=== PATIENT | female | born 1950 | race Caucasian/White ===

== ENCOUNTER 2022-05-19 08:48 | Outpatient (CLI) | payer MEDICARE, BC, SELFPAY ==
[2022-05-19 11:34] LABS: Albumin* 3.1 g/dL (3.3-5.0); Chloride* 96 mmol/L (96-114); Potassium* 4.9 mmol/L (3.6-5.1); Sodium* 133 mmol/L (135-149)
[2022-05-19 11:36] LABS: Iron* 71 ug/dL (37-170)
[2022-05-19 11:37] LABS: Creatinine* 3.4 mg/dL (0.5-1.5); Estimated Glomerular Filt Rate 14 ml/min
[2022-05-19 11:38] LABS: Blood Urea Nitrogen* 53 mg/dL (7-30); Calcium* 8.3 mg/dL (8.4-10.6); Carbon Dioxide* 28 mmol/L (20-32); Glucose* 115 mg/dL (60-115); Phosphorus* 5.5 mg/dL (2.5-4.5); Uric Acid* 6.7 mg/dL (2.2-8.4)
[2022-05-19 11:40] LABS: C Reactive Protein* 2.7 mg/dL (0.5-1.0)
[2022-05-19 11:45] LABS: Percent Iron Saturation 31 % (20-50); Total Iron Binding Capacity 229 ug/dL (265-497)
== END 2022-05-19 08:49 | disposition home or self-care (01) ==
PROVIDERS: Visit Provider Internal Medicine Nephrology
DX: D64.9 Anemia, unspecified (principal); I77.6 Arteritis, unspecified; N18.32 Chronic kidney disease, stage 3b; N18.4 Chronic kidney disease, stage 4 (severe)
CPT/HCPCS: 80069; 82728; 83540; 83550; 84550; 86140

== ENCOUNTER 2022-08-10 10:16 | Outpatient (CLI) | payer MEDICARE, BC, SELFPAY ==
[2022-08-10 15:05] LABS: Chloride* 97 mmol/L (96-114); Sodium* 131 mmol/L (135-149)
[2022-08-10 15:06] LABS: Iron* 35 ug/dL (37-170); Potassium* 3.8 mmol/L (3.6-5.1)
[2022-08-10 15:08] LABS: Carbon Dioxide* 25 mmol/L (20-32); Estimated Glomerular Filt Rate 16 ml/min
[2022-08-10 15:09] LABS: Blood Urea Nitrogen* 35 mg/dL (7-30); Calcium* 6.5 mg/dL (8.4-10.6); Glucose* 120 mg/dL (60-115); Phosphorus* 2.7 mg/dL (2.5-4.5)
[2022-08-10 15:15] LABS: Percent Iron Saturation 16 % (20-50); Total Iron Binding Capacity 214 ug/dL (265-497)
== END 2022-08-10 10:17 | disposition home or self-care (01) ==
PROVIDERS: Visit Provider Internal Medicine Nephrology
DX: N18.4 Chronic kidney disease, stage 4 (severe) (principal); D64.9 Anemia, unspecified; I10 Essential (primary) hypertension; R10.9 Unspecified abdominal pain; G89.4 Chronic pain syndrome; E03.9 Hypothyroidism, unspecified
CPT/HCPCS: 80069; 82310; 82728; 83540; 83550; 83970

== ENCOUNTER 2022-12-08 15:01 | Outpatient (CLI) | payer MEDICARE, BC, SELFPAY | END 2022-12-08 15:02 | disposition home or self-care (01) | LOC: AMB 12-10 12:19 | PROVIDERS: Visit Provider Emergency Medicine | DX: U07.1 COVID-19 (principal); R50.9 Fever, unspecified; R53.1 Weakness | CPT/HCPCS: A0425; A0429 ==

== ENCOUNTER 2022-12-08 15:29 | Inpatient (IN) | payer MEDICARE, BC, SELFPAY ==
[2022-12-08] VITALS (23 sets, daily range): BP systolic 100–141; BP diastolic 61–88; PULSE 97–170; RESP 20–32; TEMP 36.5–38.2; O2SAT 88–98; BMI 21.9
--- NOTE | 2022-12-08 16:11 | ED_ITS ---
HPI - General Adult General Chief complaint: Shortness of Breath/Dyspnea Stated complaint: Flu Symptoms Time Seen by Provider: 12/08/22 15:54 History of Present Illness HPI narrative: This 72-year-old female comes in with vague complaints but arrives with a heart rate at around 170 beats per minute. She states that she does not have any chest pain, shortness of breath, lightheadedness, or diaphoresis. She does state that she has had symptoms like this more than once in the past. I asked her what symptoms she was feeling today that made her want to come in and she did not give a clear answer. Her [id number] who cares for her arrives later and states that she found her to be less responsive with decreased oxygen and increased heart rate. Related Data Previous Rx's Medication Instructions Recorded levothyroxine 75 mcg tablet 75 mcg PO QDAY #90 tabs 08/10/22 (Levo-T) mirtazapine 15 mg tablet 15 mg PO QDAY #90 tabs 08/10/22 omeprazole magnesium 20 mg 20 mg PO QDAY #90 tabs 08/10/22 tablet,delayed release (Prilosec OTC) sodium bicarbonate 650 mg tablet 1,300 mg PO BID #360 tabs 08/10/22 iron,carbonyl 65 mg-vitamin C 125 1 tab PO QDAY #90 tabs 08/12/22 mg tablet,delayed release (Vitron-C) prednisone 5 mg tablet 5 mg PO QDAY #90 tabs 08/14/22 metoprolol tartrate 25 mg tablet See Rx Instructions .Route 11/10/22 .COMPLEX #180 tabs oxycodone 20 mg tablet 20 mg PO Q4H PRN pain #120 tabs 11/16/22 morphine 15 mg tablet,extended 15 mg PO Q12H #60 tabs 11/30/22 release Allergies Allergy/AdvReac Type Severity Reaction Status Date / Time varenicline Allergy Verified 08/10/22 10:26 Review of Systems Status of ROS: Reports: 10 or more systems reviewed and unremarkable except as noted in History and below Narrative: Constitutional: No fevers, no weight gain or loss. Eyes: No discharge. No vision changes. HENT: No congestion, no sore throat, no ear pain. Cardiovascular: No chest pain, no palpitations. Respiratory: No shortness of breath, no wheezes, no cough. Gastrointestinal: No abdominal pain, no vomiting, no diarrhea. Genitourinary: No dysuria, no hematuria. Musculoskeletal: Normal range of motion. Skin: No rashes, no pruritis. The patient's [id number] reports a chronic sacral ulcer. Neurological: No dizziness, weakness, sensory change, speech change. Endo/Heme/Allergies: No bruising or bleeding. No polydipsia. Pysch: no suicidality, no anxiety, no insomnia. All other systems reviewed and are negative. [facility] Medical History (Updated 12/08/22 @ 18:14 by Osiel Whelan MD) CKD (chronic kidney disease) stage 4, GFR 15-29 ml/min History of malignant melanoma (08/20/11) Major depression Tibia/fibula fracture Social History (Updated 05/07/22 @ 13:28 by Pepper Torres) Narrative: Durable power of commercial litigation attorney in chart- statutory short form power of commercial litigation attorney completed on 03/06/2021, reviewed and sent for scanning on 03/14/2021 Smoking Status: Never smoker Do you use any of these nicotine containing products: None Second hand tobacco smoke exposure: No How often do you have a drink containing alcohol: never How often do you have six or more drinks on one occasion: Never AUDIT-C Alcohol total score: 0 Non-prescribed substance use: denies use service: No Exam Narrative: Exam Narrative: Constitutional: Well-developed, well-nourished, no acute distress. HEENT: Normocephalic, atraumatic. Neck: Normal range of motion. Nontender. Supple. Heart: Regular. No murmurs. Tachycardia, rate around 170 beats per minute. Intact distal pulses. Lungs: Clear to auscultation. No chest discomfort. No wheezes, rhonchi, or rales. Abdomen: Normal bowel sounds. Nontender. No rebound tenderness. Genitalia: Deferred. Back: No midline tenderness. Normal range of motion. Extremities: Normal range of motion. No injury. Skin: Intact. No rash. Warm. No erythema or pallor. Neurologic: No altered sensation. No weakness. Alert and oriented. Psychiatric: No suicidality. No anxiety or depression. No insomnia. Nursing notes and vitals signs are reviewed. Const: Vital Signs, click to edit/add: Vital Signs - 24 hr 12/08/22 15:40 12/08/22 16:23 12/08/22 16:23 Temperature 98.6 F Pulse Rate Pulse Rate [Right Pulse Oximeter] 170 H Respiratory Rate 32 H Blood Pressure Blood Pressure [Ri ght Upper Arm] 105/70 Pulse Oximetry 88 93 93 Oxygen Delivery Me thod Nasal Cannula OxyM ask OxyMask Oxygen Flow Rate 6 12/08/22 16:48 12/08/22 15:51 12/08/22 16:00 Temperature 100.7 F H Pulse Rate 169 H 168 H Pulse Rate [Right Pulse Oximeter] Respiratory Rate Blood Pressure Blood Pressure [Ri ght Upper Arm] Pulse Oximetry 92 Oxygen Delivery Me thod Oxygen Flow Rate 12/08/22 16:07 12/08/22 16:15 12/08/22 16:21 Temperature Pulse Rate 166 H 164 H 170 H Pulse Rate [Right Pulse Oximeter] Respiratory Rate Blood Pressure 102/79 109/86 Blood Pressure [Ri ght Upper Arm] Pulse Oximetry 93 93 92 Oxygen Delivery Me thod Oxygen Flow Rate 12/08/22 16:30 12/08/22 16:41 12/08/22 16:44 Temperature Pulse Rate 165 H 165 H 168 H Pulse Rate [Right Pulse Oximeter] Respiratory Rate Blood Pressure 108/67 100/71 Blood Pressure [Ri ght Upper Arm] Pulse Oximetry 93 93 92 Oxygen Delivery Me thod Oxygen Flow Rate 12/08/22 16:45 12/08/22 16:46 12/08/22 17:00 Temperature Pulse Rate 136 H 125 H 113 H Pulse Rate [Right Pulse Oximeter] Respiratory Rate Blood Pressure 103/72 Blood Pressure [Ri ght Upper Arm] Pulse Oximetry 94 92 98 Oxygen Delivery Me thod Oxygen Flow Rate 12/08/22 17:02 12/08/22 17:03 12/08/22 17:15 Temperature Pulse Rate 117 H 115 H 115 H Pulse Rate [Right Pulse Oximeter] Respiratory Rate Blood Pressure 134/73 Blood Pressure [Ri ght Upper Arm] Pulse Oximetry 96 97 95 Oxygen Delivery Me thod Oxygen Flow Rate 12/08/22 17:21 12/08/22 17:30 12/08/22 17:42 Temperature Pulse Rate 119 H 120 H 110 H Pulse Rate [Right Pulse Oximeter] Respiratory Rate Blood Pressure 140/88 H 141/83 H Blood Pressure [Ri ght Upper Arm] Pulse Oximetry 94 95 96 Oxygen Delivery Me thod Oxygen Flow Rate 12/08/22 17:45 Temperature Pulse Rate 108 H Pulse Rate [Right Pulse Oximeter] Respiratory Rate Blood Pressure Blood Pressure [Ri ght Upper Arm] Pulse Oximetry 97 Oxygen Delivery Me thod Oxygen Flow Rate Course Vital Signs Vital signs: Initial Vital Signs Temperature 98.6 F 12/08/22 15:40 Temperature Source Temporal Artery Scan 12/08/22 15:40 Pulse Rate 170 H 12/08/22 15:40 Respiratory Rate 32 H 12/08/22 15:40 Blood Pressure 105/70 12/08/22 15:40 Blood Pressure Mean 81 12/08/22 15:40 Blood Pressure Position Sitting 12/08/22 15:40 Pulse Oximetry 88 12/08/22 15:40 Oxygen Delivery Method OxyMask 12/08/22 15:40 Vital Signs Temperature 98.6 F 12/08/22 15:40 Pulse Rate 170 H 12/08/22 15:40 Respiratory Rate 32 H 12/08/22 15:40 Blood Pressure 105/70 12/08/22 15:40 Pulse Oximetry 88 12/08/22 15:40 Oxygen Delivery Method OxyMask 12/08/22 15:40 Temperature 100.7 F H 12/08/22 16:48 Pulse Rate 108 H 12/08/22 17:45 Respiratory Rate 32 H 12/08/22 15:40 Blood Pressure 141/83 H 12/08/22 17:42 Pulse Oximetry 97 12/08/22 17:45 Oxygen Delivery Method 12/08/22 16:23 Oxygen Flow Rate 6 12/08/22 16:23 Medical Decision Making MDM Narrative Medical decision making narrative: This patient arrives with supraventricular tachycardia. Her initial temperature was normal. She had increased respiratory rate at around 32 breaths per minute. An IV was established where she received 6 mg of Adenocard which converted her back to a sinus tachycardia with a rate around 120 beats per minute. A repeat temperature returns at 100.7? F. patient has a lactate level that returns at 2. 2. She received 1.5 L of normal saline. She does have renal insufficiency with a creatinine around 3. Her white blood cell count returns elevated at around 28,000. Testing for COVID returns positive. Chest x-ray shows pneumonia in the right lower lobe. SIRS Criteria for sepsis involve any two of the following criteria: Temperature >38 or <36C; heart rate > 90 bpm; Respiratory rate >20 breaths/minute or partial pressure of CO2 < 32 mmHg. Based on this this patient does Meet criteria for sepsis workup and treatment. This patient presents with symptoms suspicious for sepsis. Appropriate labs are ordered which may include CBC, BMP, lactate, and blood cultures. The initial lactate returns at 2.2. One thousand five hundred mL of IV fluids were ordered at a rate of 500 mL/hr. The patient received approximately 20 milliliters/kilogram fluids because of a concern for heart/renal failure. Appropriate antibiotic (Zosyn) was administered after blood cultures drawn. A repeat lactate is pending at the time of admission. I relayed these findings to the hospitalist personal service representative, Dr. Rivera, who will arrange for her admission. Lab Data Labs: Lab Results 12/08/22 12/08/22 12/08/22 Range/Units 15:40 16:09 16:09 WBC 28.53 H* (4.50-11.00) K/uL RBC 3.31 L (4.00-5.20) m/uL Hgb 9.9 L (12.0-16.0) gm/dL Hct 29.7 L (33.0-51.0) % MCV 90 (80-100) fL MCH 30 (26-34) pg MCHC 33 (32-36) gm/dL RDW Coeff of Mona 14.1 (11.5-15.5) % Plt Count 310 (140-440) K/uL Neut % (Auto) 89.7 H (42.0-72.0) % Lymph % (Auto) 1.1 L (20-44) % Edgar % (Auto) 7.1 (0.0-11.0) % Eos % (Auto) 0.0 (0.0-7.0) % Baso % (Auto) 0.2 (0.0-3.0) % Neut # (Auto) 25.60 H (1.7-7.0) K/uL Lymph # (Auto) 0.30 L (0.90-2.90) K/uL Edgar # (Auto) 2.00 H (0.00-0.90) K/UL Eos # (Auto) 0.00 (0.00-0.50) K/uL Baso # (Auto) 0.10 (0.00-0.30) K/uL Diff Slide Review Acceptable Review (Acceptable) Sodium 132 L (135-149) mmol/L Potassium 4.6 (3.6-5.1) mmol/L Chloride 97 (96-114) mmol/L Carbon Dioxide 28 (20-32) mmol/L BUN 42 H (7-30) mg/dL Creatinine 3.7 H (0.5-1.5) mg/dL Estimated GFR 12 ml/min Glucose 122 H (60-115) mg/dL Lactate (0.5-1.9) mmol/L Calcium 8.4 (8.4-10.6) mg/dL Magnesium 2.3 (1.5-2.6) mg/dL SARS-CoV-2 (PCR) POSITIVE SARS-CoV-2 A (Negative) Influenza Type A (PCR) Negative PCR FLU A (Negative) Influenza Type B (PCR) Negative PCR FLU B (Negative) RSV (PCR) Negative PCR RSV (Negative) POC Troponin I (0.01-0.04) ng/ml 12/08/22 12/08/22 12/08/22 Range/Units 16:09 16:16 16:36 WBC (4.50-11.00) K/uL RBC (4.00-5.20) m/uL Hgb (12.0-16.0) gm/dL Hct (33.0-51.0) % MCV (80-100) fL MCH (26-34) pg MCHC (32-36) gm/dL RDW Coeff of Mona (11.5-15.5) % Plt Count (140-440) K/uL Neut % (Auto) (42.0-72.0) % Lymph % (Auto) (20-44) % Edgar % (Auto) (0.0-11.0) % Eos % (Auto) (0.0-7.0) % Baso % (Auto) (0.0-3.0) % Neut # (Auto) (1.7-7.0) K/uL Lymph # (Auto) (0.90-2.90) K/uL Edgar # (Auto) (0.00-0.90) K/UL Eos # (Auto) (0.00-0.50) K/uL Baso # (Auto) (0.00-0.30) K/uL Diff Slide Review (Acceptable) Sodium (135-149) mmol/L Potassium (3.6-5.1) mmol/L Chloride (96-114) mmol/L Carbon Dioxide (20-32) mmol/L BUN (7-30) mg/dL Creatinine (0.5-1.5) mg/dL Estimated GFR ml/min Glucose (60-115) mg/dL Lactate 2.2 H (0.5-1.9) mmol/L Calcium (8.4-10.6) mg/dL Magnesium Cancelled (1.5-2.6) mg/dL SARS-CoV-2 (PCR) (Negative) Influenza Type A (PCR) (Negative) Influenza Type B (PCR) (Negative) RSV (PCR) (Negative) POC Troponin I 0.03 (0.01-0.04) ng/ml Imaging Data Chest x-ray: Radiologist's impression: Right lower lobe airspace disease probably representing pneumonia. ECG Data Attestation: I personally reviewed and interpreted this ECG as follows: Interpretation: Supraventricular tachycardia, rate 168 beats per minute. There are no specific ST or T-wave abnormalities. Critical Care Time Critical Care Time Critical Care Time: Yes Attestation: The patient required my highest level preparedness to intervene emergently and I personally spent this critical care time directly and personally managing the patient. This critical care time included: Obtaining a history; Examining the patient; Pulse oximetry; Ordering and reviewing of studies; Arranging urgent treatment with development of a management plan; Evaluation of patients response to treatment; Frequent reassessment discussions with other providers. This critical care time was performed to assess and manage the high probability of imminent life-threatening deterioration that could result in multiorgan failure. It was exclusive of separate billable procedures and treating other patients and teaching time. Total Critical Care Time in Minutes: 45 Discharge Plan Discharge Clinical Impression: Pneumonia, CKD (chronic kidney disease) stage 4, GFR 15-29 ml/min, Sinus tachycardia, Chronic pain syndrome, COVID-19, Supraventricular tachycardia Patient Disposition: Admitted As Inpatient Condition: Improved Prescriptions: No Action omeprazole magnesium [Prilosec OTC] 20 mg tablet,delayed release (DR/EC) 20 mg PO QDAY Qty: 90 3RF levothyroxine [Levo-T] 75 mcg tablet 75 mcg PO QDAY Qty: 90 2RF mirtazapine 15 mg tablet 15 mg PO QDAY Qty: 90 1RF sodium bicarbonate 650 mg tablet 1,300 mg PO BID Qty: 360 1RF Vitron-C 65 mg iron- 125 mg tablet,delayed release (DR/EC) 1 tab PO QDAY Qty: 90 3RF prednisone 5 mg tablet 5 mg PO QDAY Qty: 90 3RF metoprolol tartrate 25 mg tablet See Rx Instructions .ROUTE .COMPLEX Qty: 180 0RF Dose Instruction: TAKE 1 TABLET BY MOUTH TWICE DAILY Rx Instructions: TAKE 1 TABLET BY MOUTH TWICE DAILY oxycodone 20 mg tablet 20 mg PO Q4H PRN (Reason: pain) Qty: 120 0RF morphine 15 mg tablet extended release 15 mg PO Q12H Qty: 60 0RF Follow Up/Referrals: Provider,Not a Local [Primary Care Provider] -
[2022-12-08 16:22] LABS: Basophils Percent Auto 0.2 % (0.0-3.0); Hematocrit 29.7 % (33.0-51.0); Hemoglobin* 9.9 gm/dL (12.0-16.0); Immature Granulocytes Pct Auto 1.9 %; Lymphocytes Percent Auto 1.1 % (20-44); Mean Corpuscular HGB Conc 33 gm/dL (32-36); Mean Corpuscular Hemoglobin 30 pg (26-34); Mean Corpuscular Volume 90 fL (80-100); Monocytes Percent Auto 7.1 % (0.0-11.0); Neutrophils Percent Auto 89.7 % (42.0-72.0); Platelet Count* 310 K/uL (140-440); RDW Coefficient of Variation % 14.1 % (11.5-15.5); Red Blood Count 3.31 m/uL (4.00-5.20)
[2022-12-08 16:25] LABS: Slide Review Reflex Yes; White Blood Count* 28.53 K/uL (4.50-11.00)
[2022-12-08 16:33] LABS: Troponin, Point-of-Care* 0.03 ng/ml (0.01-0.04)
--- NOTE | 2022-12-08 16:37 | CRLHL7_ITS ---
For Patients: As a result of the Century Cures Act, medical imaging exams and procedure reports are released immediately into your electronic medical record. You may view this report before your referring provider. If you have questions, please contact your health care provider. INDICATION: Leukocytosis COMPARISON: None TECHNIQUE: Single-view portable study FINDINGS: TUBES AND LINES: None. HEART AND MEDIASTINUM: The heart size is normal. The mediastinal contour appears normal for patient age. LUNGS AND PLEURAL SPACES: Right lower lobe airspace disease.The pleural spaces are unremarkable. OSSEOUS STRUCTURES: Age-appropriate appearance. No acute focal finding. IMPRESSION: Right lower lobe airspace disease probably representing pneumonia. Dictated by Shad Dela Cruz MD @ 12/08/2022 5:54:04 PM (Electronically Signed)
[2022-12-08 16:40] LABS: PCR FLU A Negative PCR FLU A (Negative); PCR FLU B Negative PCR FLU B (Negative); PCR RSV Negative PCR RSV (Negative)
[2022-12-08 16:41] LABS: SARS PCR* POSITIVE SARS-CoV-2 (Negative)
[2022-12-08 16:46] LABS: Lactate* 2.2 mmol/L (0.5-1.9)
[2022-12-08] MEDS: 0.9 % SODIUM CHLORIDE 500 ML 500 ML IV (16:46)
[2022-12-08] MEDS: ADENOSINE 6 MG/2ML INJ IVP (16:46)
[2022-12-08 17:02] LABS: Chloride* 97 mmol/L (96-114); Potassium* 4.6 mmol/L (3.6-5.1); Sodium* 132 mmol/L (135-149)
[2022-12-08 17:05] LABS: Blood Urea Nitrogen* 42 mg/dL (7-30); Carbon Dioxide* 28 mmol/L (20-32); Creatinine* 3.7 mg/dL (0.5-1.5); Estimated Glomerular Filt Rate 12 ml/min
[2022-12-08 17:06] LABS: Calcium* 8.4 mg/dL (8.4-10.6); Glucose* 122 mg/dL (60-115); Magnesium* 2.3 mg/dL (1.5-2.6)
[2022-12-08 17:07] LABS: Slide Review Acceptable Review (Acceptable)
[2022-12-08] MEDS: ONDANSETRON 2 MG/ML inj 4 MG IVP (17:25)
[2022-12-08] MEDS: OXYCODONE 5 MG TABLET 10 MG PO (17:49)
[2022-12-08] MEDS: 0.9 % SODIUM CHLORIDE 1000 ml 1,000 ML IV (17:49)
[2022-12-08] MEDS: PIPERACILLIN/TAZOBACTAM 3.375 GM in 0.9 % SODIUM CHLORIDE Mini-bag 100 ML IVPB (18:23)
[2022-12-08 18:36] LABS: Appearance Urine Clear (Clear); Bilirubin Urine Negative (Negative); Blood Urine 2+ (Negative); Color Urine Yellow (Yellow); Glucose Urine Negative (Negative); Ketones Urine Negative (Negative); Leukocyte Esterase Urine 1+ (Negative); Nitrite Urine Positive (Negative); Protein Urine 3+ (Negative); Specific Gravity Urine 1.015 (1.000-1.030); Urobilinogen Urine 0.2 (0.2-1.0); pH Urine 8.5 (5.0-8.5)
[2022-12-08 18:44] LABS: Bacteria Urine Few; Squamous Epithelial Cell Urine Few (None-Few)
--- NOTE | 2022-12-08 19:52 | PM.IMHP1 ---
Hospitalist- H&P: HPI History of Present Illness Time Seen by Provider: 18:30 Date Seen: 12/08/22 Chief complaint: Confusion, tachycardia, hypoxia Narrative: Alejandra Ashford is a 72 year old woman presents to the emergency department for assessment at the behest of her xepitzcf-ro-riw, Nati Keenan. Patient is not clear why she is here. Her nilmnykv-lq-teu indicates that she has been watching her zdkmhx-ih-gss closely since her kcgdcu-xo-wog's was diagnosed with COVID-19. This morning the patient was more weak. Patient was unable to get out of bed. Patient was tired and sleepy. Evtvlgbb-bi-lpd was concerned about this but kept an eye on her throughout the day. When she visited her later in the morning it was apparent that she was confused, had a rapid heart rate, and on her oximeter her oxygen saturations were low in the 80s. Ilvdqnvy-qo-sui finally convinced her yvntmy-py-icv to come in for assessment. Historically the patient is known to have chronic kidney disease stage 5 due to an underlying vasculitis not otherwise specified. She has had a major workup at the [facility], [facility], department of Nephrology. She is followed by Dr. Younger, sheet manager, [facility]. Patient has opted for comfort cares only. She has declined dialysis as well as kidney transplant. Family is trying to honor the patient's requests. Review of Systems Status of ROS: Reports: 10 or more systems reviewed and unremarkable except as noted in History and below Narrative: Over the past 1-2 days the patient has become increasingly weak, intermittently confused. More forgetful. Has had increasing lassitude. Her weakness progressed to the point where she was unable to get out of bed today. She has had decreased oral intake. She has had low-grade fevers with temperatures up to 100? F at home. Heart rate typically runs 100-120 when she is at rest. Today her heart rates were running higher between 140 and 150 that kemunbev-ui-pib could count. Normally her room air oxygen saturations are in the 90s. Today saturations were in the low 80s. As I evaluate the patient at this time, she is not sure why she is here. Denies any unusual or different pain at this time. Does have chronic pain. Does take opioids on a chronic basis at home. Over the past 4 months she has been treated 3 times for recurrent C diff colitis. She last completed a 2 week course of oral vancomycin for this 2 weeks ago. Does not have diarrhea at this time. Takes daily prednisone 5 mg daily. As the patient has become increasingly ill she has not taken stress doses of prednisone. Lives with her in a duplex. Their home is immediately adjacent to the home of their son and pfzinmzp-qd-yim. Her uurztqph-ms-won is her primary caregiver. Her thlmmldl-wg-pzc often makes her meals daily for her. Family is very supportive the patient in her decision to keep comfortable. Patient indicates on eleazaritating Rivka that she has a DNR DNI resuscitation status. Patient does not wish to pursue any additional disease directed diagnostic or interventional efforts aside from modalities to help her remain comfortable. Does not want any heroic interventions undertaken. She designates her bojvpnlv-fn-atu, Nati Keenan, as her primary power of litigation attorney associate for health should that be required. Nati's cell phone number is [phone]. Ivan Keenan is her son, whom Nati is to. She also designates Ivan as a power of litigation attorney associate for health should that be required. Ivan cell phone number is [phone]. [facility] Medical History Anemia Anemia due to stage 3b chronic kidney disease Bacterial pneumonia (03/07/13) Chronic nausea Chronic pain syndrome Chronic venous insufficiency of lower extremity CKD (chronic kidney disease) stage 4, GFR 15-29 ml/min Clostridioides difficile infection Fracture of proximal end of left tibia and fibula Frailty syndrome in geriatric patient Gastroesophageal reflux disease Health care directive on file (03/06/21) History of malignant melanoma (08/20/11) HTN (hypertension) Hypokalemia Hypothyroidism Incontinence of feces Major depression Moderate protein-calorie malnutrition Peripheral arterial disease Physical deconditioning Pressure injury of both feet, stage 3 Pressure injury of coccygeal region, stage 4 Pressure injury of ischium, stage 4 Pressure injury of skin of left ischial area Psoriasis (07/15/09) 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) Sinus tachycardia Squamous cell carcinoma (07/12/09) Stage 3b chronic kidney disease Tibia/fibula fracture Tobacco dependence syndrome Vasculitis Venous stasis ulcer of right lower extremity Vitamin D deficiency (08/26/10) Social History Narrative: Durable power of litigation attorney associate in chart- statutory short form power of litigation attorney associate completed on 03/06/2021, reviewed and sent for scanning on 03/14/2021 Smoking Status: Never smoker Do you use any of these nicotine containing products: None Second hand tobacco smoke exposure: No How often do you have a drink containing alcohol: never How often do you have six or more drinks on one occasion: Never AUDIT-C Alcohol total score: 0 Non-prescribed substance use: denies use service: No Meds Home Medications and Allergies Home Medication Comments: Levothyroxine 75 mcg daily Mirtazapine 15 mg daily Omeprazole 20 mg daily Sodium bicarbonate 650 mg tabs, 2 tabs twice daily Iron 65 mg with vitamin-C 125 mg 1 tab daily Prednisone 5 mg daily Metoprolol tartrate 25 mg twice daily Oxycodone immediate release 20 mg tab 1 every 4 hours as needed for pain Morphine 15 mg extended release tab 15 mg every 12 hours Allergies Allergy/AdvReac Type Severity Reaction Status Date / Time varenicline Allergy Verified 08/10/22 10:26 Exam Narrative: Exam Narrative: By the time I see her she appears comfortable. On presentation she is afebrile at 98.6. Within about an hour her temperature was up to 100.7? F. She is no longer tachycardic with a heart rate of 170, rather her heart rate is around 100 beats per minute. Did receive a single dose of adenosine which helped a great deal. Seizure no longer tachypneic at 32, with current respiratory rate 24. Room air oxygen saturation at rest on 1st presentation was 88%. With non-rebreather mask on at 6 liters/minute she is saturating 94-96%. Blood pressure initially low with systolic of 105. After slowing her heart rate down and provided her with oxygen, her blood pressure improved to a systolic value of 140 mmHg. Still not able to articulate why she came here. Is able to articulate that she thinks she has been having some problems. Readily indicates that she trusts her brrsxmhk-iw-wcy who accompanies her here in the emergency department was I am seeing her. Oriented to self, place, in part to time and situation. Friendly, cooperative, articulate. Mood and affect are congruent. Hearing is preserved grossly bilaterally. Vision is preserved grossly bilaterally. Tacky, dry buccal mucosa. Nasal-oropharynx otherwise unremarkable. Has cushinoid and appearance. Lungs remarkable for the fact that she has rales in the right base otherwise clear. No CVA tenderness. Tachycardic with regular heart rate and rhythm. Abdomen with active bowel sounds, soft, nontender. Has pitting edema bilateral pretibial area. Has compression stockings on. No focal motor neurologic deficits. Does have generalized weakness. Does have the confusion. Const: Vital Signs, click to edit/add: Vital Signs - 24 hr 12/08/22 15:40 12/08/22 16:23 12/08/22 16:23 Temperature 98.6 F Pulse Rate Pulse Rate [Right Pulse Oximeter] 170 H Respiratory Rate 32 H Blood Pressure Blood Pressure [Ri ght Upper Arm] 105/70 Pulse Oximetry 88 93 93 Oxygen Delivery Me thod Nasal Cannula OxyM ask OxyMask Oxygen Flow Rate 6 12/08/22 16:48 12/08/22 15:51 12/08/22 16:00 Temperature 100.7 F H Pulse Rate 169 H 168 H Pulse Rate [Right Pulse Oximeter] Respiratory Rate Blood Pressure Blood Pressure [Ri ght Upper Arm] Pulse Oximetry 92 Oxygen Delivery Me thod Oxygen Flow Rate 12/08/22 16:07 12/08/22 16:15 12/08/22 16:21 Temperature Pulse Rate 166 H 164 H 170 H Pulse Rate [Right Pulse Oximeter] Respiratory Rate Blood Pressure 102/79 109/86 Blood Pressure [Ri ght Upper Arm] Pulse Oximetry 93 93 92 Oxygen Delivery Me thod Oxygen Flow Rate 12/08/22 16:30 12/08/22 16:41 12/08/22 16:44 Temperature Pulse Rate 165 H 165 H 168 H Pulse Rate [Right Pulse Oximeter] Respiratory Rate Blood Pressure 108/67 100/71 Blood Pressure [Ri ght Upper Arm] Pulse Oximetry 93 93 92 Oxygen Delivery Me thod Oxygen Flow Rate 12/08/22 16:45 12/08/22 16:46 12/08/22 17:00 Temperature Pulse Rate 136 H 125 H 113 H Pulse Rate [Right Pulse Oximeter] Respiratory Rate Blood Pressure 103/72 Blood Pressure [Ri ght Upper Arm] Pulse Oximetry 94 92 98 Oxygen Delivery Me thod Oxygen Flow Rate 12/08/22 17:02 12/08/22 17:03 12/08/22 17:15 Temperature Pulse Rate 117 H 115 H 115 H Pulse Rate [Right Pulse Oximeter] Respiratory Rate Blood Pressure 134/73 Blood Pressure [Ri ght Upper Arm] Pulse Oximetry 96 97 95 Oxygen Delivery Me thod Oxygen Flow Rate 12/08/22 17:21 12/08/22 17:30 12/08/22 17:42 Temperature Pulse Rate 119 H 120 H 110 H Pulse Rate [Right Pulse Oximeter] Respiratory Rate Blood Pressure 140/88 H 141/83 H Blood Pressure [Ri ght Upper Arm] Pulse Oximetry 94 95 96 Oxygen Delivery Me thod Oxygen Flow Rate 12/08/22 17:45 Temperature Pulse Rate 108 H Pulse Rate [Right Pulse Oximeter] Respiratory Rate Blood Pressure Blood Pressure [Ri ght Upper Arm] Pulse Oximetry 97 Oxygen Delivery Me thod Oxygen Flow Rate Hospitalist - H&P: Result Labs Labs: Short CBC 12/08/22 Range/Units 16:09 WBC 28.53 H* (4.50-11.00) K/uL Hgb 9.9 L (12.0-16.0) gm/dL Hct 29.7 L (33.0-51.0) % Plt Count 310 (140-440) K/uL BMP 12/08/22 16:09 Sodium 132 L Potassium 4.6 Chloride 97 Carbon Dioxide 28 BUN 42 H Creatinine 3.7 H Glucose 122 H Calcium 8.4 Urine 12/08/22 Range/Units 18:28 Urine Color Yellow (Yellow) Urine Appearance Clear (Clear) Urine pH 8.5 (5.0-8.5) Ur Specific [place] 1.015 (1.000-1.030) Urine Protein 3+ A (Negative) Urine Glucose (UA) Negative (Negative) Assessment and Plan Assessment and plan (1) Community acquired pneumonia: Status: Acute (2) COVID-19: Status: Acute (3) Encephalopathy acute: Problem comment: Multifactorial including from COVID-19, pneumonia and fever, adrenal insufficiency, acute kidney injury with chronic kidney disease stage 5 Status: Acute (4) Supraventricular tachycardia: Status: Acute (5) Sinus tachycardia: Status: Acute (6) Clostridioides difficile infection: Problem comment: Treated with oral vancomycin 3 x since July 2022, last completed a 2-week course 11/24/2022. Status: Acute (7) Acute hypoxemic respiratory failure: Status: Acute Plan 1. Reviewed with patient and her efcmkdzo-ae-toi. Answered their questions. 2. Admit to the hospital, which they are agreeable to. 3. Treat for bacterial pneumonia with piperacillin and tazobactam, adjusted for chronic kidney disease and acute kidney injury. 4. Initiate a 3 day course of remdesivir. 5. With the recurrent clostridioides difficile infection, will need to preemptively initiate vancomycin 125 mg q.i.d. for a minimum of 10 days while on antibiotic therapy for the pneumonia. Additionally will initiate oral probiotics for indefinite period of time hereafter. 6. Stress dosing of steroids for at least today before resumption of usual doses. 7. Monitor patient on telemetry while in hospital receiving remdesivir. 8. Under patient's request for DNR DNI and focus on her being comfortable. 9. Continue with other supportive efforts.
[2022-12-08] MEDS: HYDROCORTISONE SOD SUCCINATE 50 MG/ML inj 100 MG IVP (21:32)
[2022-12-08] MEDS: VANCOMYCIN 125 MG CAPSULE PO (21:32)
[2022-12-08] MEDS: MIRTAZAPINE 15 MG TABLET PO (21:33)
[2022-12-08] MEDS: METOPROLOL TARTRATE 25 MG TABLET PO (21:33)
[2022-12-08] MEDS: SODIUM BICARBONATE 650 MG TABLET 1300 MG PO (21:33)
[2022-12-08] MEDS: SODIUM CHLORIDE 0.9 % (FLUSH) 10 ML SYRINGE 5 ML IVF (21:34)
[2022-12-08] MEDS: OXYCODONE 5 MG TABLET 20 MG PO (21:34)
[2022-12-09] VITALS (7 sets, daily range): BP systolic 136–162; BP diastolic 56–83; PULSE 60–108; RESP 18–22; TEMP 35.9–36.6; O2SAT 92–95; BMI 21.8
--- NOTE | 2022-12-09 00:58 | PC.NURSE ---
Wound dressing change: Pt arrived with sacral wound and dressing that was soaked through. Simple wet to dry dressing was performed, sterile gauze with saline irrigant solution used for packing, with 2X2 gauze on top and covered with Mepilex. Pt tolerated procedure well, her divfesfp-kg-ffj Nati, assisted in the room, she is the primary caregiver and does dressing changes for the pt at home.
[2022-12-09] MEDS: PIPERACILLIN/TAZOBACTAM 2.25 GM in 0.9 % SODIUM CHLORIDE Mini-bag 100 ML IVPB ×3 (01:55→17:57)
[2022-12-09] MEDS: HYDROCORTISONE SOD SUCCINATE 50 MG/ML inj 100 MG IVP ×2 (05:57→13:57)
[2022-12-09] MEDS: SODIUM CHLORIDE 0.9 % (FLUSH) 10 ML SYRINGE 5 ML IVF ×2 (05:57→20:30)
--- NOTE | 2022-12-09 06:11 | PC.NURSE ---
Shift note: Pt is afebrile overnight, she is on room air, O2 sats 92-94% with rest. Gill cath is intact and draining. Extremely fragile skin, flakes and scaling shedding continuously. The entire bottom is heidi, with major sacral wound and two healed lateral wounds on each side of buttock. Chronic pain treated per eMAR with relief, pt was able to rest overnight. Alert and oriented, pleasant and cooperative.
[2022-12-09 09:21] LABS: Basophils Percent Auto 0.2 % (0.0-3.0); Eosinophils Percent Auto 0.1 % (0.0-7.0); Hemoglobin* 8.5 gm/dL (12.0-16.0); Immature Granulocytes Pct Auto 0.5 %; Lymphocytes Percent Auto 1.7 % (20-44); Mean Corpuscular HGB Conc 33 gm/dL (32-36); Mean Corpuscular Hemoglobin 30 pg (26-34); Mean Corpuscular Volume 91 fL (80-100); Monocytes Percent Auto 1.9 % (0.0-11.0); Neutrophils Percent Auto 95.6 % (42.0-72.0); Platelet Count* 208 K/uL (140-440); RDW Coefficient of Variation % 14.2 % (11.5-15.5); Red Blood Count 2.87 m/uL (4.00-5.20); White Blood Count* 12.54 K/uL (4.50-11.00)
[2022-12-09 09:28] LABS: Slide Review Reflex No
[2022-12-09 09:32] LABS: Chloride* 99 mmol/L (96-114)
[2022-12-09 09:33] LABS: Potassium* 4.7 mmol/L (3.6-5.1); Sodium* 130 mmol/L (135-149)
[2022-12-09 09:35] LABS: Carbon Dioxide* 24 mmol/L (20-32); Creatinine* 3.6 mg/dL (0.5-1.5); Est. Creatinine Clearance* 14.55; Estimated Glomerular Filt Rate 13 ml/min
[2022-12-09 09:36] LABS: Blood Urea Nitrogen* 40 mg/dL (7-30); Glucose* 83 mg/dL (60-115)
--- NOTE | 2022-12-09 09:51 | P.IMPN_ITS ---
Progress Note: A&P Assessment and plan (1) Community acquired pneumonia: Problem details: - RLL, noted on 12/08 CXR - Zosyn (12/08) Status: Acute (2) COVID-19: Problem details: - Remdesivir (12/08), not requiring supplemental oxygen as of hospital day #1 - weakness as primary symptom; therapies ordered Status: Acute (3) Clostridioides difficile infection: Problem details: - Recurrent; treated with oral vancomycin 3 x since July 2022, last completed a 2-week course 11/24/2022 - empirically initiated oral Vancomycin on 12/08 given CAP, significant leukocytosis on admission, antibiotic administration, risk factors Status: Acute (4) Encephalopathy acute: Problem details: - Multifactorial including from COVID-19, pneumonia and fever, adrenal insufficiency, KAMILA superimposed onto CKD - improving Status: Acute (5) Supraventricular tachycardia: Problem details: - noted in ED 12/08 (treated with Adenosine x1), resolved Status: Acute (6) CKD (chronic kidney disease) stage 4, GFR 15-29 ml/min: Status: Acute (7) Decubitus ulcer of coccygeal region: Problem details: - wound care referral placed Status: Acute (8) Chronic use of opiate drug for therapeutic purpose: Problem details: - chronic pain; continue home medications Status: Acute (9) Chronic steroid use: Problem details: - 5mg of daily Prednisone for h/o vasculitis, RA, psoriasis - continue Prednisone during stay; given stress dose IV hydrocortisone on admission Status: Acute Plan - per above - renally dosed Lovenox for ppx - qcwxjqud-cc-uft Nati updated at beside, questions answered Subjective Date Seen: 12/09/22 Interval history: Patient was able to wean off of supplemental oxygen overnight, tolerated medications and cares. She states she's feeling not good, no specific concerns for hospitalist team. No diarrhea at this time. Exam Narrative: Exam Narrative: GEN: Alert and oriented, appears ill but nontoxic HEENT: EOMIs bilaterally, no scleral icterus CV: RRR, No concerning murmurs, rubs, or gallops R: Bibasilar crackles, R>L, no wheezing Ext: Wearing Riley hose bilaterally Skin: Erythematous, flaking, fragile skin noted over buttocks with + skin breakdown. Larger coccyx wound covered during my exam Neuro: No focal deficits Psych: Appropriate Const: Vital Signs, click to edit/add: Vital Signs - 24 hr 12/08/22 15:40 12/08/22 16:23 12/08/22 16:23 Temperature 98.6 F Pulse Rate Pulse Rate [Pulse Oximeter] Pulse Rate [Right Pulse Oximeter] 170 H Respiratory Rate 32 H Blood Pressure Blood Pressure [Le ft Arm] Blood Pressure [Ri ght Upper Arm] 105/70 Pulse Oximetry 88 93 93 Oxygen Delivery Me thod Nasal Cannula OxyM ask OxyMask Oxygen Flow Rate 6 12/08/22 16:48 12/08/22 15:51 12/08/22 16:00 Temperature 100.7 F H Pulse Rate 169 H 168 H Pulse Rate [Pulse Oximeter] Pulse Rate [Right Pulse Oximeter] Respiratory Rate Blood Pressure Blood Pressure [Le ft Arm] Blood Pressure [Ri ght Upper Arm] Pulse Oximetry 92 Oxygen Delivery Me thod Oxygen Flow Rate 12/08/22 16:07 12/08/22 16:15 12/08/22 16:21 Temperature Pulse Rate 166 H 164 H 170 H Pulse Rate [Pulse Oximeter] Pulse Rate [Right Pulse Oximeter] Respiratory Rate Blood Pressure 102/79 109/86 Blood Pressure [Le ft Arm] Blood Pressure [Ri ght Upper Arm] Pulse Oximetry 93 93 92 Oxygen Delivery Me thod Oxygen Flow Rate 12/08/22 16:30 12/08/22 16:41 12/08/22 16:44 Temperature Pulse Rate 165 H 165 H 168 H Pulse Rate [Pulse Oximeter] Pulse Rate [Right Pulse Oximeter] Respiratory Rate Blood Pressure 108/67 100/71 Blood Pressure [Le ft Arm] Blood Pressure [Ri ght Upper Arm] Pulse Oximetry 93 93 92 Oxygen Delivery Me thod Oxygen Flow Rate 12/08/22 16:45 12/08/22 16:46 12/08/22 17:00 Temperature Pulse Rate 136 H 125 H 113 H Pulse Rate [Pulse Oximeter] Pulse Rate [Right Pulse Oximeter] Respiratory Rate Blood Pressure 103/72 Blood Pressure [Le ft Arm] Blood Pressure [Ri ght Upper Arm] Pulse Oximetry 94 92 98 Oxygen Delivery Me thod Oxygen Flow Rate 12/08/22 17:02 12/08/22 17:03 12/08/22 17:15 Temperature Pulse Rate 117 H 115 H 115 H Pulse Rate [Pulse Oximeter] Pulse Rate [Right Pulse Oximeter] Respiratory Rate Blood Pressure 134/73 Blood Pressure [Le ft Arm] Blood Pressure [Ri ght Upper Arm] Pulse Oximetry 96 97 95 Oxygen Delivery Me thod Oxygen Flow Rate 12/08/22 17:21 12/08/22 17:30 12/08/22 17:42 Temperature Pulse Rate 119 H 120 H 110 H Pulse Rate [Pulse Oximeter] Pulse Rate [Right Pulse Oximeter] Respiratory Rate Blood Pressure 140/88 H 141/83 H Blood Pressure [Le ft Arm] Blood Pressure [Ri ght Upper Arm] Pulse Oximetry 94 95 96 Oxygen Delivery Me thod Oxygen Flow Rate 12/08/22 17:45 12/08/22 19:26 12/08/22 19:26 Temperature 100.7 F H Pulse Rate 108 H Pulse Rate [Pulse Oximeter] 108 H Pulse Rate [Right Pulse Oximeter] Respiratory Rate 22 22 Blood Pressure Blood Pressure [Le ft Arm] 141/83 H Blood Pressure [Ri ght Upper Arm] Pulse Oximetry 97 97 96 Oxygen Delivery Me thod OxyMask OxyMask Oxygen Flow Rate 6 6 12/08/22 23:00 12/09/22 03:00 Temperature 97.7 F 98 F Pulse Rate Pulse Rate [Pulse Oximeter] 97 95 Pulse Rate [Right Pulse Oximeter] Respiratory Rate 20 18 Blood Pressure Blood Pressure [Le ft Arm] 140/61 H 138/60 Blood Pressure [Ri ght Upper Arm] Pulse Oximetry 94 95 Oxygen Delivery Me thod OxyMask Room Air OxyMask Oxygen Flow Rate 2 Labs Labs: Laboratory Results - last 24 hr 12/08/22 12/08/22 12/08/22 15:40 16:09 16:09 WBC 28.53 H* RBC 3.31 L Hgb 9.9 L Hct 29.7 L MCV 90 MCH 30 MCHC 33 RDW Coeff of Mona 14.1 Plt Count 310 Neut % (Auto) 89.7 H Lymph % (Auto) 1.1 L [place] % (Auto) 7.1 Eos % (Auto) 0.0 Baso % (Auto) 0.2 Neut # (Auto) 25.60 H Lymph # (Auto) 0.30 L [place] # (Auto) 2.00 H Eos # (Auto) 0.00 Baso # (Auto) 0.10 Diff Slide Review Acceptable Review Sodium 132 L Potassium 4.6 Chloride 97 Carbon Dioxide 28 BUN 42 H Creatinine 3.7 H Estimated Creat Clear Estimated GFR 12 Glucose 122 H Lactate Calcium 8.4 Magnesium 2.3 Urine Color Urine Appearance Urine pH Ur Specific [place] Urine Protein Urine Glucose (UA) Urine Ketones Urine Blood Urine Nitrite Urine Bilirubin Urine Urobilinogen Ur Leukocyte Esterase Urine RBC Urine WBC Ur Squamous Epith Cells Urine Bacteria SARS-CoV-2 (PCR) POSITIVE SARS-CoV-2 A Influenza Type A (PCR) Negative PCR FLU A Influenza Type B (PCR) Negative PCR FLU B RSV (PCR) Negative PCR RSV POC Troponin I 12/08/22 12/08/22 12/08/22 16:09 16:16 16:36 WBC RBC Hgb Hct MCV MCH MCHC RDW Coeff of Mnoa Plt Count Neut % (Auto) Lymph % (Auto) [place] % (Auto) Eos % (Auto) Baso % (Auto) Neut # (Auto) Lymph # (Auto) [place] # (Auto) Eos # (Auto) Baso # (Auto) Diff Slide Review Sodium Potassium Chloride Carbon Dioxide BUN Creatinine Estimated Creat Clear Estimated GFR Glucose Lactate 2.2 H Calcium Magnesium Cancelled Urine Color Urine Appearance Urine pH Ur Specific [place] Urine Protein Urine Glucose (UA) Urine Ketones Urine Blood Urine Nitrite Urine Bilirubin Urine Urobilinogen Ur Leukocyte Esterase Urine RBC Urine WBC Ur Squamous Epith Cells Urine Bacteria SARS-CoV-2 (PCR) Influenza Type A (PCR) Influenza Type B (PCR) RSV (PCR) POC Troponin I 0.03 12/08/22 12/09/22 12/09/22 18:28 09:15 09:15 WBC 12.54 H RBC 2.87 L Hgb 8.5 L Hct 26.0 L MCV 91 MCH 30 MCHC 33 RDW Coeff of Mona 14.2 Plt Count 208 Neut % (Auto) 95.6 H Lymph % (Auto) 1.7 L [place] % (Auto) 1.9 Eos % (Auto) 0.1 Baso % (Auto) 0.2 Neut # (Auto) 12.00 H Lymph # (Auto) 0.20 L [place] # (Auto) 0.20 Eos # (Auto) 0.00 Baso # (Auto) 0.00 Diff Slide Review Sodium 130 L Potassium 4.7 Chloride 99 Carbon Dioxide 24 BUN 40 H Creatinine 3.6 H Estimated Creat Clear 14.55 Estimated GFR 13 Glucose 83 Lactate Calcium 7.0 L Magnesium Urine Color Yellow Urine Appearance Clear Urine pH 8.5 Ur Specific [place] 1.015 Urine Protein 3+ A Urine Glucose (UA) Negative Urine Ketones Negative Urine Blood 2+ A Urine Nitrite Positive A Urine Bilirubin Negative Urine Urobilinogen 0.2 Ur Leukocyte Esterase 1+ A Urine RBC 5-10 A Urine WBC 2-5 Ur Squamous Epith Cells Few Urine Bacteria Few A SARS-CoV-2 (PCR) Influenza Type A (PCR) Influenza Type B (PCR) RSV (PCR) POC Troponin I
[2022-12-09] MEDS: OXYCODONE 5 MG TABLET 20 MG PO ×4 (10:18→23:34)
[2022-12-09] MEDS: METOPROLOL TARTRATE 25 MG TABLET PO ×2 (10:21→23:25)
[2022-12-09] MEDS: VANCOMYCIN 125 MG CAPSULE PO ×2 (10:22→23:26)
[2022-12-09] MEDS: LEVOTHYROXINE 75 MCG TABLET PO (10:22)
[2022-12-09] MEDS: ENOXAPARIN 30 MG/0.3ML INJ SUBCUT ×2 (10:27→10:29)
[2022-12-09] MEDS: SODIUM BICARBONATE 650 MG TABLET 1300 MG PO (10:28)
[2022-12-09] MEDS: ONDANSETRON ODT 4 MG TAB PO ×2 (11:40→17:57)
--- NOTE | 2022-12-09 14:14 | REH.PT ---
Pt refused PT eval d/t n/v. Will eval tomorrow.
--- NOTE | 2022-12-09 16:33 | REH.OT ---
OT: Order received, attempted x2, initial time vomiting late am, then declined OOB. Will reschedule to tomorrow.
[2022-12-09] MEDS: LACTOBACILLUS ACIDOPHILUS 1 TABLET 2 TAB PO (17:56)
--- NOTE | 2022-12-09 18:38 | PC.NURSE ---
Patient with weakness and nausea today. Patient declined therapy services today as she was not feeling well and nausea. Patient was given PRN zofran x2 on this shift. Patient daughter in law request patient have oxycodone every 4 hours for pain control. Patient with continent/incontinence of BM today and requested bedpan. Patient remains 1-2 assist with cares. patient skin remians very dry and flaky. Patient has extensive wound to sacral area that patient and daughter in law preferred not to be changed today. Patient legs has BLE wounds and were both changed by this nurse with wound wash, and nonstick pad and kerlix applied. Patient instructed to inform daughter in law to provide staff with wound care instructions in order for staff to follow up with proper wound care to insure proper healing for patient. Patient daughter in law requests that therapy works with patient but states that patient baseline at home was only that patient transferred from bed to her motorized wheelchair. Patient requires some assistance with feeding as she has arthritis and is unable to open her containers. Patient catheter remains in place and patent. Patient vitally stable.
[2022-12-09] MEDS: ONDANSETRON 2 MG/ML inj 4 MG IVP (20:31)
[2022-12-09] MEDS: 0.9 % SODIUM CHLORIDE 250 ml IV (20:48)
[2022-12-09] MEDS: PROCHLORPERAZINE 10 MG TABLET PO (22:35)
[2022-12-09] MEDS: MIRTAZAPINE 15 MG TABLET PO (23:26)
[2022-12-09] MEDS: FAMOTIDINE 20 MG TABLET PO (23:27)
[2022-12-10] VITALS (7 sets, daily range): BP systolic 129–159; BP diastolic 54–88; PULSE 64–77; RESP 12–20; TEMP 36.6–37.5; O2SAT 92–96
[2022-12-10] MEDS: LORazepam 2 MG/ML inj 0.5 MG IVP (00:13)
[2022-12-10] MEDS: PIPERACILLIN/TAZOBACTAM 2.25 GM in 0.9 % SODIUM CHLORIDE Mini-bag 100 ML IVPB ×3 (01:57→18:04)
--- NOTE | 2022-12-10 05:36 | PC.NURSE ---
: Beginning of shift pt's nausea wasn't relieved after zofran, thus prochlorperazine order received but after an hour no relief/not even tired, had 10cc emesis, thus md updated and ativan order obtained/given iv with relief as patient has been resting soundly since, rr 12-14 oximetry low 90% ra, abdomen active, had soft bm, no distention/pain. tolerating t&r, skin irritated/flaky/red refused lotion, coccyx mepilex intact, prior nurse wrapped pt's legs and pt didn't want me to remove them, cms appropriate, tele nsr.
[2022-12-10] MEDS: LEVOTHYROXINE 75 MCG TABLET PO (05:55)
[2022-12-10 07:28] LABS: Basophils Absolute Auto 0.02 K/uL (0.00-0.30); Basophils Percent Auto 0.2 % (0.0-3.0); Eosinophils Absolute Auto 0.02 K/uL (0.00-0.50); Eosinophils Percent Auto 0.2 % (0.0-7.0); Hematocrit 27.2 % (33.0-51.0); Hemoglobin* 8.9 gm/dL (12.0-16.0); Immature Granulocytes Abs Auto 0.05 K/uL (0.00-0.30); Immature Granulocytes Pct Auto 0.6 %; Lymphocytes Percent Auto 7.7 % (20-44); Mean Corpuscular HGB Conc 33 gm/dL (32-36); Mean Corpuscular Hemoglobin 30 pg (26-34); Mean Corpuscular Volume 91 fL (80-100); Monocytes Percent Auto 7.1 % (0.0-11.0); Neutrophils Percent Auto 84.2 % (42.0-72.0); Platelet Count* 220 K/uL (140-440); RDW Coefficient of Variation % 14.2 % (11.5-15.5); White Blood Count* 8.86 K/uL (4.50-11.00)
[2022-12-10 07:30] LABS: Lactate* 0.8 mmol/L (0.5-1.9); Slide Review Reflex No
[2022-12-10 07:54] LABS: Chloride* 101 mmol/L (96-114)
[2022-12-10 07:55] LABS: Potassium* 3.5 mmol/L (3.6-5.1); Sodium* 133 mmol/L (135-149)
[2022-12-10 07:57] LABS: Carbon Dioxide* 24 mmol/L (20-32); Creatinine* 3.4 mg/dL (0.5-1.5); Estimated Glomerular Filt Rate 14 ml/min
[2022-12-10 07:58] LABS: Blood Urea Nitrogen* 40 mg/dL (7-30); Calcium* 7.1 mg/dL (8.4-10.6); Glucose* 82 mg/dL (60-115)
[2022-12-10] MEDS: LACTOBACILLUS ACIDOPHILUS 1 TABLET 2 TAB PO ×3 (08:06→17:49)
[2022-12-10] MEDS: ACETAMINOPHEN 325 MG TABLET 650 MG PO (09:04)
[2022-12-10] MEDS: FAMOTIDINE 20 MG TABLET PO ×2 (09:06→20:07)
[2022-12-10] MEDS: SODIUM BICARBONATE 650 MG TABLET 1300 MG PO ×2 (09:06→20:07)
[2022-12-10] MEDS: METOPROLOL TARTRATE 25 MG TABLET PO ×2 (09:06→20:07)
[2022-12-10] MEDS: predniSONE 5 MG TABLET PO (09:06)
[2022-12-10] MEDS: VANCOMYCIN 125 MG CAPSULE PO ×4 (09:07→20:07)
[2022-12-10] MEDS: ENOXAPARIN 30 MG/0.3ML INJ SUBCUT (09:07)
[2022-12-10] MEDS: OXYCODONE 5 MG TABLET 20 MG PO ×3 (09:19→17:04)
--- NOTE | 2022-12-10 09:28 | PM.IMPN1 ---
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; treated with oral vancomycin 3 x since July 2022, last completed a 2-week course 11/24/2022 - empirically initiated oral Vancomycin on 12/08 given CAP, significant leukocytosis on admission, antibiotic administration, risk factors - currently not having diarrhea Status: Acute (4) Encephalopathy acute: Problem details: - noted on admission: Multifactorial including from COVID-19, pneumonia and fever, adrenal insufficiency, KAMILA superimposed onto CKD - improving Status: Acute (5) Supraventricular tachycardia: Problem details: - noted in ED 12/08 (treated with Adenosine x1), resolved - HR now on the lower side (currently 60s, HR at home typically 90-100, per Nati); likely iatrogenic from remdesivir. Regular rhythm, asymptomatic, follow - TTE ordered Status: Acute (6) CKD (chronic kidney disease) stage 4, GFR 15-29 ml/min: Problem details: - with associated normocytic anemia, baseline Status: Acute (7) Decubitus ulcer of coccygeal region: Problem details: - wound care Status: Acute (8) Chronic use of opiate drug for therapeutic purpose: Problem details: - chronic pain; continue home medications Status: Acute (9) Chronic steroid use: Problem details: - 5mg of daily Prednisone for h/o vasculitis, RA, psoriasis - continue Prednisone during stay; treated with stress dose IV hydrocortisone on admission Status: Acute (10) Hypocalcemia: Problem details: - replace and follow Status: Acute Plan - per above - Lovenox for ppx - [id number] Nati updated at bedside, questions answered Subjective Date Seen: 12/10/22 Interval history: No acute events overnight. Remains stable on room air. Still feels poorly, no other concerns for hospitalist team. Exam Narrative: Exam Narrative: GEN: Alert, laying comfortably in bed HEENT: EOMIs bilaterally, no scleral icterus CV: RRR (rate in the 60s during my exam), No concerning murmurs, rubs, or gallops R: Fine crackles bilateral bases, no wheezing Skin: No concerning skin lesions or rashes on exposed skin (sacrum not formally examined today) Neuro: No focal deficits Psych: Appropriate Const: Vital Signs, click to edit/add: Vital Signs - 24 hr 12/09/22 11:00 12/09/22 15:00 12/09/22 15:00 Temperature 97.9 F 97.9 F Pulse Rate [Pulse Oximeter] 79 79 80 Respiratory Rate 22 22 22 Blood Pressure [Le ft Arm] 162/68 H 162/79 H Blood Pressure [Ri ght Arm] Pulse Oximetry 95 95 Oxygen Delivery Me thod Room Air Room Air Oxygen Flow Rate 2 12/09/22 20:51 12/09/22 21:00 12/09/22 23:27 Temperature 98 F 97.7 F Pulse Rate [Pulse Oximeter] 60 67 Respiratory Rate 18 18 18 Blood Pressure [Le ft Arm] 143/83 H 158/69 H Blood Pressure [Ri ght Arm] Pulse Oximetry 95 95 Oxygen Delivery Me thod Room Air Room Air Oxygen Flow Rate 12/10/22 03:00 12/10/22 07:00 Temperature 97.9 F 98.3 F Pulse Rate [Pulse Oximeter] 64 64 Respiratory Rate 18 12 Blood Pressure [Le ft Arm] 129/54 L Blood Pressure [Ri ght Arm] 148/59 H Pulse Oximetry 92 93 Oxygen Delivery Me thod Room Air Room Air Oxygen Flow Rate Labs Labs: Laboratory Results - last 24 hr 12/09/22 12/09/22 12/10/22 09:15 09:15 07:16 WBC 12.54 H 8.86 RBC 2.87 L 3.00 L Hgb 8.5 L 8.9 L Hct 26.0 L 27.2 L MCV 91 91 MCH 30 30 MCHC 33 33 RDW Coeff of Mona 14.2 14.2 Plt Count 208 220 Neut % (Auto) 95.6 H 84.2 H Lymph % (Auto) 1.7 L 7.7 L Dickens % (Auto) 1.9 7.1 Eos % (Auto) 0.1 0.2 Baso % (Auto) 0.2 0.2 Neut # (Auto) 12.00 H 7.50 H Lymph # (Auto) 0.20 L 0.70 L Dickens # (Auto) 0.20 0.60 Eos # (Auto) 0.00 0.02 Baso # (Auto) 0.00 0.02 Sodium 130 L Potassium 4.7 Chloride 99 Carbon Dioxide 24 BUN 40 H Creatinine 3.6 H Estimated Creat Clear 14.55 Estimated GFR 13 Glucose 83 Lactate Calcium 7.0 L 12/10/22 12/10/22 07:16 07:16 WBC RBC Hgb Hct MCV MCH MCHC RDW Coeff of Mona Plt Count Neut % (Auto) Lymph % (Auto) Dickens % (Auto) Eos % (Auto) Baso % (Auto) Neut # (Auto) Lymph # (Auto) Dickens # (Auto) Eos # (Auto) Baso # (Auto) Sodium 133 L Potassium 3.5 L Chloride 101 Carbon Dioxide 24 BUN 40 H Creatinine 3.4 H Estimated Creat Clear 15.40 Estimated GFR 14 Glucose 82 Lactate 0.8 Calcium 7.1 L
[2022-12-10] MEDS: SODIUM CHLORIDE 0.9 % (FLUSH) 10 ML SYRINGE 5 ML IVF ×2 (09:59→20:13)
[2022-12-10] MEDS: 0.9 % SODIUM CHLORIDE 250 ml IV (10:01)
--- NOTE | 2022-12-10 12:38 | PM.WSCN ---
Date of Consult Consult date: 12/10/22 Requesting Physician: Hospitalist Primary Care Provider: Not a Local Provider Consult Narrative Reason for consult: chronic pressure ulcer to coccyx Narrative: Alejandra Ashford is a 72 year old female known to this provider through the wound center. Patients wound is stable, in similar appearance to when I last saw her wound in 2021. Patient remains with limited mobility and utilizes airloss mattress. Patient is currently inpatient with covid-19 infection. Review of Systems Status of ROS: Reports: 6 or more systems reviewed and unremarkable except as noted in History and below [facility] Medical History (Updated 01/13/23 @ 21:56 by Rj Mackay MD) Steroid dependence ?F19.20 - Other psychoactive substance dependence, uncomplicated (ICD-10) Clostridioides difficile infection ?A49.8 - Other bacterial infections of unspecified site (ICD-10) HTN (hypertension) ?I10 - Essential (primary) hypertension (ICD-10) Major depression ?F32.9 - Major depressive disorder, single episode, unspecified (ICD-10) Vasculitis ?I77.6 - Arteritis, unspecified (ICD-10) Anemia ?D64.9 - Anemia, unspecified (ICD-10) Vitamin D deficiency (08/26/10) ?E55.9 - Vitamin D deficiency, unspecified (ICD-10) Venous stasis ulcer of right lower extremity ?I83.019 - Varicose veins of right lower extremity with ulcer of unspecified site (ICD-10) ?L97.919 - Non-pressure chronic ulcer of unspecified part of right lower leg with unspecified severity (ICD-10) Tobacco dependence syndrome ?F17.200 - Nicotine dependence, unspecified, uncomplicated (ICD-10) Stage 3b chronic kidney disease ?N18.32 - Chronic kidney disease, stage 3b (ICD-10) Squamous cell carcinoma (07/12/09) Sinus tachycardia ?R00.0 - Tachycardia, unspecified (ICD-10) 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) ?L40.50 - Arthropathic psoriasis, unspecified (ICD-10) Psoriasis (07/15/09) ?L40.9 - Psoriasis, unspecified (ICD-10) Pressure injury of skin of left ischial area ?L89.329 - Pressure ulcer of left buttock, unspecified stage (ICD-10) Pressure injury of ischium, stage 4 ?L89.304 - Pressure ulcer of unspecified buttock, stage 4 (ICD-10) Pressure injury of coccygeal region, stage 4 ?L89.154 - Pressure ulcer of sacral region, stage 4 (ICD-10) Pressure injury of both feet, stage 3 ?L89.893 - Pressure ulcer of other site, stage 3 (ICD-10) Physical deconditioning ?R53.81 - Other malaise (ICD-10) Peripheral arterial disease ?I73.9 - Peripheral vascular disease, unspecified (ICD-10) Moderate protein-calorie malnutrition ?E44.0 - Moderate protein-calorie malnutrition (ICD-10) Incontinence of feces ?R15.9 - Full incontinence of feces (ICD-10) Hypothyroidism ?E03.9 - Hypothyroidism, unspecified (ICD-10) Hypokalemia ?E87.6 - Hypokalemia (ICD-10) History of malignant melanoma (08/20/11) ?Z85.820 - Personal history of malignant melanoma of skin (ICD-10) Health care directive on file (03/06/21) ?Z78.9 - Other specified health status (ICD-10) Gastroesophageal reflux disease ?K21.9 - Gastro-esophageal reflux disease without esophagitis (ICD-10) Frailty syndrome in geriatric patient ?R54 - Age-related physical debility (ICD-10) Fracture of proximal end of left tibia and fibula ?S82.102A - Unspecified fracture of upper end of left tibia, initial encounter for closed fracture (ICD-10) ?S82.832A - Other fracture of upper and lower end of left fibula, initial encounter for closed fracture (ICD-10) Chronic venous insufficiency of lower extremity ?I87.2 - Venous insufficiency (chronic) (peripheral) (ICD-10) Chronic pain syndrome ?G89.4 - Chronic pain syndrome (ICD-10) Chronic nausea ?R11.0 - Nausea (ICD-10) Bacterial pneumonia (03/07/13) ?J15.9 - Unspecified bacterial pneumonia (ICD-10) Anemia due to stage 3b chronic kidney disease ?N18.32 - Chronic kidney disease, stage 3b (ICD-10) ?D63.1 - Anemia in chronic kidney disease (ICD-10) Tibia/fibula fracture ?S82.209A - Unspecified fracture of shaft of unspecified tibia, initial encounter for closed fracture (ICD-10) ?S82.409A - Unspecified fracture of shaft of unspecified fibula, initial encounter for closed fracture (ICD-10) CKD (chronic kidney disease) stage 4, GFR 15-29 ml/min ?N18.4 - Chronic kidney disease, stage 4 (severe) (ICD-10) Social History Narrative: Durable power of managing attorney in chart- statutory short form power of managing attorney completed on 03/06/2021, reviewed and sent for scanning on 03/14/2021 Smoking Status: Never smoker Do you use any of these nicotine containing products: None Second hand tobacco smoke exposure: No How often do you have a drink containing alcohol: never How often do you have six or more drinks on one occasion: Never AUDIT-C Alcohol total score: 0 Non-prescribed substance use: denies use service: No Meds Home Medications and Allergies Home Medications Medication Instructions Recorded Confirmed Type iron,carbonyl 65 mg-vitamin C 125 1 tab PO DAILY 12/09/22 12/09/22 History mg tablet,delayed release (Vitron-C) levothyroxine 75 mcg tablet 75 mcg PO DAILY 12/09/22 12/09/22 History (Levo-T) metoprolol tartrate 25 mg tablet 25 mg PO BID 12/09/22 12/09/22 History mirtazapine 15 mg tablet 15 mg PO DAILY 12/09/22 12/09/22 History omeprazole magnesium 20 mg 20 mg PO DAILY 12/09/22 12/09/22 History tablet,delayed release (Prilosec OTC) prednisone 5 mg tablet 5 mg PO DAILY PRN 12/09/22 12/09/22 History Allergies Allergy/AdvReac Type Severity Reaction Status Date / Time varenicline Allergy Verified 08/10/22 10:26 Exam Narrative: Exam Narrative: General: NAD, resting in bed, appears comfortable. Pulmonary: unlabored, symmetrical rise Coccyx wound: Unable to visualize full base of wound due to undermining. 90% slough/biofilm, fibrosis, 10% granulation. Drainage serosanguineous-moderate amount. Perla-wound WNL. Measurements- [id number], undermining 1.2 cm, 2-9 o'clock. Psych: normal affect Const: Vital Signs, click to edit/add: Vital Signs - 24 hr 12/09/22 15:00 12/09/22 15:00 12/09/22 20:51 Temperature 97.9 F 98 F Pulse Rate Pulse Rate [Pulse Oximeter] 79 80 60 Respiratory Rate 22 22 18 Blood Pressure [Le ft Arm] 162/79 H 143/83 H Blood Pressure [Ri ght Arm] Pulse Oximetry 95 95 Oxygen Delivery Me thod Room Air Room Air Oxygen Flow Rate 2 12/09/22 21:00 12/09/22 23:27 12/10/22 03:00 Temperature 97.7 F 97.9 F Pulse Rate Pulse Rate [Pulse Oximeter] 67 64 Respiratory Rate 18 18 18 Blood Pressure [Le ft Arm] 158/69 H 129/54 L Blood Pressure [Ri ght Arm] Pulse Oximetry 95 92 Oxygen Delivery Me thod Room Air Room Air Oxygen Flow Rate 12/10/22 07:00 12/10/22 07:00 12/10/22 07:00 Temperature 98.3 F Pulse Rate 67 Pulse Rate [Pulse Oximeter] 64 64 Respiratory Rate 12 12 Blood Pressure [Le ft Arm] Blood Pressure [Ri ght Arm] 148/59 H Pulse Oximetry 93 Oxygen Delivery Me thod Room Air Oxygen Flow Rate 12/10/22 11:00 Temperature 99.5 F Pulse Rate Pulse Rate [Pulse Oximeter] 71 Respiratory Rate 14 Blood Pressure [Le ft Arm] 149/88 H Blood Pressure [Ri ght Arm] Pulse Oximetry 92 Oxygen Delivery Me thod Room Air Oxygen Flow Rate Documenting provider has reviewed patient's vital signs: yes Labs Labs: Short CBC 12/10/22 Range/Units 07:16 WBC 8.86 (4.50-11.00) K/uL Hgb 8.9 L (12.0-16.0) gm/dL Hct 27.2 L (33.0-51.0) % Plt Count 220 (140-440) K/uL BMP 12/10/22 07:16 Sodium 133 L Potassium 3.5 L Chloride 101 Carbon Dioxide 24 BUN 40 H Creatinine 3.4 H Glucose 82 Calcium 7.1 L Assessment and Plan Assessment and plan (1) Unstageable pressure ulcer of sacral region: Problem comment: Continue cares with outpatient wound care. Status: Deleted (2) Impaired mobility: Problem comment: Nati, daughter, providing care. Home health resumed. Status: Acute Plan Focus on offloading, keeping patient from laying supine for extending periods. Reposition at minimum every 2 hours. Focus on increased protein, supplement with zinc and vitaminC Woundcare orders: --Cleanse wound with available wound cleanser (vashe currently at bedside) --Apply 3m cavilon skin barrier to periwound --Lightly pack a strip of Aquacel Ag into woundbed, including undermining (this is at the bedside) --Cover with border foam dressing (Mepilex is on unit) --Change every other day and PRN
--- NOTE | 2022-12-10 14:00 | CRLHL7_ITS ---
For Patients: As a result of the Century Cures Act, medical imaging exams and procedure reports are released immediately into your electronic medical record. You may view this report before your referring provider. If you have questions, please contact your health care provider. INDICATION: Follow-up pneumonia. TECHNIQUE: Chest 1 view. COMPARISON: December 08, 2022.. FINDINGS: Cardiovascular and mediastinum: Cardiomediastinal silhouette is within normal limits. Lungs and pleural spaces: Redemonstrated right lower lung zone airspace opacities, similar to the prior examination. No evidence of pleural effusion. No pneumothorax identified. Bones and soft tissues: Unremarkable. IMPRESSION: Similar right lower lung zone airspace opacities. Radiographic findings often lag clinical improvement during resolution of pneumonia. To ensure resolution, consider repeat radiograph in 4-6 weeks. Dictated by Hebert Draper MD @ 12/10/2022 3:21:18 PM (Electronically Signed)
[2022-12-10] MEDS: POTASSIUM BICARB 25 MEQ EFFERVESCENT TAB PO ×2 (16:10→17:51)
--- NOTE | 2022-12-10 18:28 | PC.NURSE ---
End of Shift: Patient pleasant and cooperative, and [place]. Patient vitally stable, lungs course, BS WNL, IV intact. Patient has intermittent cough that is course and unproductive. Patient had 2 BM's today, 1 incontient, 1 commode/incontinent, both mod/lg soft. Gill intact and draining. Patient rates pain at most 8/10, 20mg of oxy given x4.
--- NOTE | 2022-12-10 18:30 | PC.NURSE ---
End of Shift: Patient pleasant, cooperative, [place]. Patient vitally stable, lungs course with course unproductive cough, BS WNL, IV intact. Patient rates pain 8/10, oxy 20 mg given x3. Patient had 2 mod/lg soft BM this shift, 1 incontinent, 1 commode/incontinent. Gill intact and draining. Patient 2 assist/walker, to chair or commode. Patient sat in chair this afternoon for dinner. Wound dressing performed per Jills request, instructions in her consult note. Patient is eating but with small appetite, eating about 45% of every meal. Aloevista applied to patients skin. Patient otherwise laying comfortably in bed.
[2022-12-10] MEDS: MIRTAZAPINE 15 MG TABLET PO (20:07)
[2022-12-11] VITALS (7 sets, daily range): BP systolic 144–173; BP diastolic 70–93; PULSE 77–100; RESP 16–18; TEMP 36.3–37.2; O2SAT 93–96
[2022-12-11] MEDS: PIPERACILLIN/TAZOBACTAM 2.25 GM in 0.9 % SODIUM CHLORIDE Mini-bag 100 ML IVPB ×3 (01:33→17:30)
[2022-12-11] MEDS: OXYCODONE 5 MG TABLET 20 MG PO ×4 (01:40→15:37)
[2022-12-11] MEDS: LEVOTHYROXINE 75 MCG TABLET PO (06:30)
[2022-12-11 07:46] LABS: Ionized Calcium* 0.97 mmol/L (1.11-1.30)
--- NOTE | 2022-12-11 07:55 | PC.NURSE ---
Status [id number] Alert and oriented. Receiving scheduled morphine and PRN Oxy for chronic pain. BP elevated. HR stable. Telemetry monitoring, normal sinus rhythm. Remains on room air. Continues on IV zosyn. IV remdesivir completed. Continues in Covid isolation. Encouraging repositioning, pt refusing overnight. Denies nausea. Gill catheter patent with adequate output. Pt observed resting well between cares.
[2022-12-11 08:06] LABS: Chloride* 104 mmol/L (96-114)
[2022-12-11 08:07] LABS: Potassium* 3.7 mmol/L (3.6-5.1); Sodium* 133 mmol/L (135-149)
[2022-12-11 08:08] LABS: Basophils Absolute Auto 0.04 K/uL (0.00-0.30); Basophils Percent Auto 0.5 % (0.0-3.0); Eosinophils Absolute Auto 0.13 K/uL (0.00-0.50); Eosinophils Percent Auto 1.7 % (0.0-7.0); Hematocrit 29.8 % (33.0-51.0); Hemoglobin* 9.8 gm/dL (12.0-16.0); Immature Granulocytes Abs Auto 0.03 K/uL (0.00-0.30); Immature Granulocytes Pct Auto 0.4 %; Lymphocytes Percent Auto 8.9 % (20-44); Mean Corpuscular HGB Conc 33 gm/dL (32-36); Mean Corpuscular Hemoglobin 29 pg (26-34); Mean Corpuscular Volume 90 fL (80-100); Monocytes Percent Auto 6.2 % (0.0-11.0); Neutrophils Percent Auto 82.3 % (42.0-72.0); Platelet Count* 251 K/uL (140-440); RDW Coefficient of Variation % 14.1 % (11.5-15.5); Red Blood Count 3.33 m/uL (4.00-5.20); White Blood Count* 7.56 K/uL (4.50-11.00)
[2022-12-11 08:09] LABS: Creatinine* 3.1 mg/dL (0.5-1.5); Est. Creatinine Clearance* 16.89; Estimated Glomerular Filt Rate 15 ml/min
[2022-12-11 08:10] LABS: Blood Urea Nitrogen* 37 mg/dL (7-30); Carbon Dioxide* 25 mmol/L (20-32); Glucose* 81 mg/dL (60-115); Magnesium* 2.2 mg/dL (1.5-2.6); Slide Review Reflex No
[2022-12-11] MEDS: VANCOMYCIN 125 MG CAPSULE PO ×4 (08:16→20:41)
[2022-12-11] MEDS: LACTOBACILLUS ACIDOPHILUS 1 TABLET 2 TAB PO ×3 (08:16→17:21)
[2022-12-11] MEDS: METOPROLOL TARTRATE 25 MG TABLET PO ×2 (08:17→20:41)
[2022-12-11] MEDS: FAMOTIDINE 20 MG TABLET PO ×2 (08:17→20:41)
[2022-12-11] MEDS: SODIUM BICARBONATE 650 MG TABLET 1300 MG PO ×2 (08:18→20:44)
[2022-12-11] MEDS: predniSONE 5 MG TABLET PO (08:18)
[2022-12-11] MEDS: ENOXAPARIN 30 MG/0.3ML INJ SUBCUT (08:19)
--- NOTE | 2022-12-11 15:03 | PC.NURSE ---
End of shift: pT. alert and oriented. Receiving scheduled morphine and PRN Oxy for chronic pain. BP elevated. HR stable. Telemetry, normal sinus rhythm. >90% on room air. Continues on IV zosyn. Pt. on covid isolation. Encouraging repositioning, pt refusing but staff has been successful at repo and changing position this shift. Denies nausea except nausea returns mildly when ambulating. Gill catheter patent with adequate output. Pt observed resting well between cares. 2 BM this shift, medium soft consistency. Pt. takes pills with pudding.
--- NOTE | 2022-12-11 16:19 | PM.IMPN1 ---
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; treated with oral vancomycin 3 x since July 2022, last completed a 2-week course 11/24/2022 - empirically initiated oral Vancomycin on 12/08 given CAP, significant leukocytosis on admission, antibiotic administration, risk factors - diarrhea noted 12/11, prn Imodium available Status: Acute (4) Encephalopathy acute: Problem details: - noted on admission: Multifactorial including from COVID-19, pneumonia and fever, adrenal insufficiency, KAMILA superimposed onto CKD - improving Status: Acute (5) Supraventricular tachycardia: Problem details: - noted in ED 12/08 (treated with Adenosine x1), resolved - on home dose of Metoprolol - [id number] Nati notes that baseline HR is 90-100 at home - TTE completed 12/11: Final Impressions: 1. Normal LV size, normal wall thickness, estimated EF of 30 - 35%. 2. Normal RV size and systolic function. 3. The aortic valve is sclerotic, no stenosis and no regurgitation. 4. The mitral valve is sclerotic, mild to moderate mitral regurgitation. 5. Normal RA pressure. Comparison Compared to prior exam of 09/11/2011: - LVEF is decreased today Status: Acute (6) CKD (chronic kidney disease) stage 4, GFR 15-29 ml/min: Problem details: - with associated normocytic anemia, baseline Status: Acute (7) Decubitus ulcer of coccygeal region: Problem details: - wound care Status: Acute (8) Chronic use of opiate drug for therapeutic purpose: Problem details: - chronic pain; continue home medications Status: Acute (9) Chronic steroid use: Problem details: - 5mg of daily Prednisone for h/o vasculitis, RA, psoriasis - continue Prednisone during stay; treated with stress dose IV hydrocortisone on admission Status: Acute (10) Hypocalcemia: Problem details: - replace and follow Status: Acute Plan - continue cares as above - Heathx and Pepcid for ppx - home with increased cares vs TCU when medically stable - reviewed with CAMI Damian outside room, questions answered Subjective Date Seen: 12/11/22 Interval history: No acute events overnight. Remains stable on room air. Still feels poorly and starting to have intermittent diarrhea, no other concerns for hospitalist team. Exam Narrative: Exam Narrative: GEN: Alert and laying comfortably in bed HEENT: EOMIs bilaterally, no scleral icterus CV: RRR, No concerning murmurs, rubs, or gallops R: Fine bibasilar crackles, no wheezing Skin: No concerning skin lesions or rashes on exposed skin, sacral wound not formally examined today Neuro: Nonfocal Psych: Appropriate Const: Vital Signs, click to edit/add: Vital Signs - 24 hr 12/10/22 20:04 12/10/22 23:11 12/10/22 23:00 Temperature 98.7 F 98.1 F Pulse Rate 71 Pulse Rate [Pulse Oximeter] 72 76 Respiratory Rate 20 18 Blood Pressure [Le ft Arm] 141/72 H 159/70 H Blood Pressure [Ri ght Arm] Pulse Oximetry 96 95 Oxygen Delivery Me thod Room Air Room Air 12/10/22 23:00 12/11/22 03:00 12/11/22 07:00 Temperature 98.3 F Pulse Rate 77 Pulse Rate [Pulse Oximeter] 85 Respiratory Rate 18 18 Blood Pressure [Le ft Arm] 164/70 H Blood Pressure [Ri ght Arm] Pulse Oximetry 95 Oxygen Delivery Me thod Room Air 12/11/22 07:00 12/11/22 07:00 12/11/22 11:00 Temperature 98.3 F 98.3 F Pulse Rate Pulse Rate [Pulse Oximeter] 80 80 97 Respiratory Rate 18 18 18 Blood Pressure [Le ft Arm] 172/83 H Blood Pressure [Ri ght Arm] 144/93 H Pulse Oximetry 93 94 Oxygen Delivery Me thod Room Air Room Air 12/11/22 15:28 Temperature 97.4 F L Pulse Rate Pulse Rate [Pulse Oximeter] 96 Respiratory Rate 16 Blood Pressure [Le ft Arm] Blood Pressure [Ri ght Arm] 162/87 H Pulse Oximetry 96 Oxygen Delivery Me thod Room Air Labs Labs: Laboratory Results - last 24 hr 12/11/22 12/11/22 12/11/22 07:24 07:24 07:24 WBC 7.56 RBC 3.33 L Hgb 9.8 L Hct 29.8 L MCV 90 MCH 29 MCHC 33 RDW Coeff of Mona 14.1 Plt Count 251 Neut % (Auto) 82.3 H Lymph % (Auto) 8.9 L Sampson % (Auto) 6.2 Eos % (Auto) 1.7 Baso % (Auto) 0.5 Neut # (Auto) 6.20 Lymph # (Auto) 0.70 L Sampson # (Auto) 0.50 Eos # (Auto) 0.13 Baso # (Auto) 0.04 Sodium 133 L Potassium 3.7 Chloride 104 Carbon Dioxide 25 BUN 37 H Creatinine 3.1 H Estimated Creat Clear 16.89 Estimated GFR 15 Glucose 81 Calcium 7.0 L Ionized Calcium Tom 0.97 L Magnesium 2.2 TSH 12/11/22 07:24 WBC RBC Hgb Hct MCV MCH MCHC RDW Coeff of Mona Plt Count Neut % (Auto) Lymph % (Auto) Sampson % (Auto) Eos % (Auto) Baso % (Auto) Neut # (Auto) Lymph # (Auto) Sampson # (Auto) Eos # (Auto) Baso # (Auto) Sodium Potassium Chloride Carbon Dioxide BUN Creatinine Estimated Creat Clear Estimated GFR Glucose Calcium Ionized Calcium Tom Magnesium TSH 3.410
--- NOTE | 2022-12-11 18:51 | PC.NURSE ---
Shift [id number]- Patient is up to chair this afternoon before going back to bed. She rates pain at 7/10 to back, butt, legs, knees with relief from PRN oxycodone. Butt is reddened, skin flakey. Mepilex to coccyx is clean, dry and intact. Gill is patent. Pillows used for offloading. She declines to order supper, though encouraged.
[2022-12-11] MEDS: CALCIUM CARBONATE 500 MG TABLET PO (20:41)
[2022-12-11] MEDS: MIRTAZAPINE 15 MG TABLET PO (20:42)
[2022-12-11] MEDS: 0.9 % SODIUM CHLORIDE 250 ml IV (21:19)
[2022-12-12] VITALS (10 sets, daily range): BP systolic 152–174; BP diastolic 64–86; PULSE 75–138; RESP 16–20; TEMP 36.7–37.4; O2SAT 92–99
[2022-12-12] MEDS: PIPERACILLIN/TAZOBACTAM 2.25 GM in 0.9 % SODIUM CHLORIDE Mini-bag 100 ML IVPB ×3 (02:16→19:04)
[2022-12-12] MEDS: OXYCODONE 5 MG TABLET 20 MG PO ×2 (02:16→09:55)
[2022-12-12] MEDS: LOPERAMIDE HCL 2 MG CAPSULE 4 MG PO ×3 (02:44→19:05)
[2022-12-12] MEDS: LEVOTHYROXINE 75 MCG TABLET PO (05:54)
--- NOTE | 2022-12-12 06:35 | PC.NURSE ---
Status [id number] Alert and oriented. Receiving scheduled morphine and PRN oxy for chronic pain. BP elevated but stable. HR tachy at times, telemetry monitoring. Remains on room air. Assist of 1-2 with repositioning. Pt refusing repositioning at times overnight. Incontinent BM x2. Pt requested PRN imodium be given. Gill catheter patent with adequate output. Continues on IV zosyn. Pt observed resting between cares.
[2022-12-12 08:24] LABS: Ionized Calcium* 0.99 mmol/L (1.11-1.30)
[2022-12-12 08:44] LABS: Chloride* 105 mmol/L (96-114); Potassium* 3.7 mmol/L (3.6-5.1); Sodium* 133 mmol/L (135-149)
[2022-12-12 08:47] LABS: Blood Urea Nitrogen* 31 mg/dL (7-30); Calcium* 7.1 mg/dL (8.4-10.6); Carbon Dioxide* 24 mmol/L (20-32); Creatinine* 2.9 mg/dL (0.5-1.5); Est. Creatinine Clearance* 18.06; Estimated Glomerular Filt Rate 17 ml/min; Glucose* 84 mg/dL (60-115)
[2022-12-12] MEDS: SODIUM BICARBONATE 650 MG TABLET 1300 MG PO ×2 (09:12→20:46)
[2022-12-12] MEDS: LACTOBACILLUS ACIDOPHILUS 1 TABLET 2 TAB PO ×3 (09:12→19:05)
[2022-12-12] MEDS: VANCOMYCIN 125 MG CAPSULE PO ×4 (09:12→20:45)
[2022-12-12] MEDS: ENOXAPARIN 30 MG/0.3ML INJ SUBCUT ×2 (09:12→11:02)
[2022-12-12] MEDS: FAMOTIDINE 20 MG TABLET PO ×2 (09:13→20:46)
[2022-12-12] MEDS: METOPROLOL TARTRATE 25 MG TABLET PO ×2 (09:13→20:44)
[2022-12-12] MEDS: predniSONE 5 MG TABLET PO (09:13)
[2022-12-12] MEDS: CALCIUM CARBONATE 500 MG TABLET PO ×2 (09:13→20:45)
[2022-12-12] MEDS: 0.9 % SODIUM CHLORIDE 250 ml IV (09:57)
[2022-12-12] MEDS: ONDANSETRON 2 MG/ML inj 4 MG IVP (11:02)
--- NOTE | 2022-12-12 12:47 | RESP.RT ---
Patient lying slightly up in bed, right side down, on room air SaO2 92%, breathing regular/easy. Good clear voice, capillary refill less than 3 seconds. Bilateral breath sounds; Left lung field good air movement, clear, Right upper lobe fair air movement, clear, right middle and lower lobe diminished with fine crackle noted, clears with us of Aerobika. Patient has fair non-productive moist, loose cough. PEP started with Aerobika, explained use of Aerobika for lung recruitment, and secretion mobilization to patient. Had patient feel chest shake to help understand use, patient verbalized understanding, stated likes this better than that other thing. Good expiratory effort with good lung shake. Promoted good non-productive loose congested cough. RT and Nurse will encourage and assist patient with use of PEP therapy.
--- NOTE | 2022-12-12 14:39 | PC.NURSE ---
End of shift-- Pt has been pleasant and cooperative, alert and oriented today. VSS and pt is afebrile. SPO2 maintained >94% on RA. Pt c/o pain which she rates from 8 to 10 out of 10. She was given Oxycodone and scheduled Morphine. Pt continues to rate her pain 8 out of 10, but appears much more comfortable and has been resting with regular breathing most of the afternoon. LS coarse and diminished and pt has an occasional moist non-productive cough. Pt using Aerobika per RT instructions and was encouraged to continue to do so. She c/o nausea this morning and was given Zofran with apparent relief. She had 1x loose incontinent BM today and was given Imodium per pt request. She ate a yogurt today independently without difficulty, but has been hesitant to eat r/t loose stools. She was up to the chair this morning with assist of 2, belt and walker and required encouragement. Dressing to coccyx was changed today, tunneling was packed with 3/4 of a vashe soaked 4x4 and covered with a fresh Mepilex that is C/D/I. Gill is patent and drained 300ml of clear, yellow urine today. DIL was at bedside and appears loving and supportive. Report to oncoming shift.
--- NOTE | 2022-12-12 15:56 | P.IMPN_ITS ---
Progress Note: A&P Assessment and plan (1) Community acquired pneumonia: Problem details: - RLL, noted on 12/08 CXR - Zosyn (12/08) - repeat chest x-ray 12/10 exhibits no worsening of disease Status: Acute (2) COVID-19: Problem details: - Remdesivir (12/08), not requiring supplemental oxygen as of hospital day #1, remains on RA. 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 Continue oral vanco during hospitalization. Has prn imodium available. Will need outpatient referral to GI for consideration of fecal transplant. Status: Acute (4) Encephalopathy acute: Problem details: - noted on admission: Multifactorial including from COVID-19, pneumonia and fever, adrenal insufficiency, KAMILA superimposed onto CKD - improving Status: Acute (5) Supraventricular tachycardia: Problem details: - noted in ED 12/08 (treated with Adenosine x1), resolved - on home dose of Metoprolol - [id number] Nati notes that baseline HR is 100-110 at home - TTE completed 12/11: Final Impressions: 1. Normal LV size, normal wall thickness, estimated EF of 30 - 35%. 2. Normal RV size and systolic function. 3. The aortic valve is sclerotic, no stenosis and no regurgitation. 4. The mitral valve is sclerotic, mild to moderate mitral regurgitation. 5. Normal RA pressure. Comparison Compared to prior exam of 09/11/2011: - LVEF is decreased today - 3/4 HR markedly elevated again. EKG shows sinus tachycardia. PE is a possible diagnosis with no good way to rule it out at this time. Patient and daughter are understanding of this and desired treatment with anticoagulation. I discussed this with the pharmacist given the patient's chronic kidney disease. Will increase Lovenox to a therapeutic dose of 60 mg subcutaneously daily. Obtain V/Q scan on Wednesday. Status: Acute (6) CKD (chronic kidney disease) stage 4, GFR 15-29 ml/min: Problem details: - with associated normocytic anemia, baseline Status: Acute (7) Decubitus ulcer of coccygeal region: Problem details: - Unstageable Recommendations from Wound Care: Focus on offloading, keeping patient from laying supine for extending periods. Reposition at minimum every 2 hours. Focus on increased protein, supplement with zinc and vitaminC Woundcare orders: --Cleanse wound with available wound cleanser (vashe currently at bedside) --Apply 3m cavilon skin barrier to periwound --Lightly pack a strip of Aquacel Ag into woundbed, including undermining (this is at the bedside) --Cover with border foam dressing (Mepilex is on unit) --Change every other day and PRN Status: Acute (8) Chronic use of opiate drug for therapeutic purpose: Problem details: - chronic pain; continue home medications Status: Acute (9) Chronic steroid use: Problem details: - 5mg of daily Prednisone for h/o vasculitis, RA, psoriasis - continue Prednisone during stay; treated with stress dose IV hydrocortisone on admission Status: Acute (10) Hypocalcemia: Problem details: - Continue to replace and follow Status: Acute Plan - Lovenox and Pepcid for ppx - home with increased cares vs TCU when medically stable Time Spent With Patient Total time spent: Today I spent 35 minutes rounding on the patient. Greater than 50% included discussing care with the patient and daughter in-law, the team, reviewing data, updating and managing the care plan. Subjective Time Seen by Provider: 11:00 Date Seen: 12/12/22 Interval history: Alejandra's [id number], Nati, was in the room this morning for my examination of Alejandra. Nati expressed a concern that Alejandra is having diarrhea again. Alejandra had COVID last July which she was hospitalized. While in a intermediate, she got C diff has had 3 bouts of C diff since then. Very recently she was on oral vancomycin at a high dose for a recurrence of C diff and just finished that a few weeks ago, now having soft stool since then. She got put on Zosyn on admission for COVID pneumonia thought to have a bacterial component and vancomycin was started empirically. Nati stresses that Merissa was not having any diarrhea prior to admission. She had diarrhea yesterday and is having it again today. Alejandra notes some shortness of breath and pain on her bottom where she has an ulcer, but otherwise feels okay. The other concern is that she has been tachycardic here, typically 120s at rest, 150s to 170s with activity. Fortino davey tells me that Alejandra has had sinus tachycardia in the 100s to 110s for over a year, but her heart rate does seem to be higher here than it is at home. We discussed the possibility of a PE, especially in the setting of COVID, and that ruling it out would be challenging since her creatinine is elevated and she has COVID with a slightly abnormal chest x-ray. Alejandra and Nati were in agreement to start pubic Lovenox for the possibility of PE. Exam Narrative: Exam Narrative: General: No acute distress. Sitting in chair. Awake, alert, oriented. No pallor. No jaundice. Oropharynx: Clear. Mucous membranes moist. Cardiovascular: Regular rate and rhythm. No murmurs, gallops, or rubs. Respiratory: Fine bibasilar crackles have resolved. Extremities: No pedal edema. Const: Vital Signs, click to edit/add: Vital Signs - 24 hr 12/11/22 17:33 12/11/22 20:45 12/11/22 23:00 Temperature 98.9 F Pulse Rate 81 100 Pulse Rate [Pulse Oximeter] 87 Respiratory Rate 18 Blood Pressure [Le ft Arm] 173/75 H Blood Pressure [Ri ght Arm] Pulse Oximetry 94 Oxygen Delivery Me thod Room Air 12/12/22 02:54 12/12/22 07:00 12/12/22 07:15 Temperature 99.3 F 98.3 F Pulse Rate 103 H Pulse Rate [Pulse Oximeter] 107 H 110 H Respiratory Rate 20 16 Blood Pressure [Le ft Arm] 168/82 H 174/86 H Blood Pressure [Ri ght Arm] Pulse Oximetry 93 92 Oxygen Delivery Me thod Room Air Room Air 12/12/22 10:00 12/12/22 11:00 12/12/22 07:00 Temperature 98.2 F Pulse Rate 138 H Pulse Rate [Pulse Oximeter] 83 83 Respiratory Rate 16 16 Blood Pressure [Le ft Arm] Blood Pressure [Ri ght Arm] 152/77 H Pulse Oximetry 98 Oxygen Delivery Me thod Room Air 12/12/22 12:45 Temperature Pulse Rate Pulse Rate [Pulse Oximeter] Respiratory Rate 18 Blood Pressure [Le ft Arm] Blood Pressure [Ri ght Arm] Pulse Oximetry 92 Oxygen Delivery Me thod Room Air Documenting provider has reviewed patient's vital signs: yes Labs Labs: Laboratory Results - last 24 hr 12/12/22 12/12/22 08:15 08:15 Sodium 133 L Potassium 3.7 Chloride 105 Carbon Dioxide 24 BUN 31 H Creatinine 2.9 H Estimated Creat Clear 18.06 Estimated GFR 17 Glucose 84 Calcium 7.1 L Ionized Calcium Tom 0.99 L
--- NOTE | 2022-12-12 19:40 | PC.NURSE ---
End of shift-- Pt has been pleasant and cooperative,no pain when she is off her butt. she was turned and repositioned. ? Pt using Aerobika per RT instructions.? no nausea this afternoon and evening, ? no BM 3-7 and was given Imodium per pt request.? She is eating probiotics. Gill is patent and drained 300ml of clear, yellow urine today.? covid and C-Diff precautions. she did not want to get out of bed 3-7
[2022-12-12] MEDS: MIRTAZAPINE 15 MG TABLET PO (20:46)
[2022-12-13] VITALS (8 sets, daily range): BP systolic 146–197; BP diastolic 66–102; PULSE 75–84; RESP 14–20; TEMP 36.1–36.8; O2SAT 95–97
[2022-12-13] MEDS: LOPERAMIDE HCL 2 MG CAPSULE 4 MG PO ×2 (02:44→10:40)
[2022-12-13] MEDS: PIPERACILLIN/TAZOBACTAM 2.25 GM in 0.9 % SODIUM CHLORIDE Mini-bag 100 ML IVPB ×3 (02:47→17:46)
[2022-12-13] MEDS: LEVOTHYROXINE 75 MCG TABLET PO (06:37)
--- NOTE | 2022-12-13 07:00 | PC.NURSE ---
Pt alert and oriented x3. Pt reports pain 8/10 pain with movement, pain managed with scheduled medications. Pt denies chest pain, SOB and N/V. Pt is turn and repo Q2H but pt refused once during the night, education was given on pressure ulcers and benefits of turning. Pt slept intermittently throughout night. Pt catheter is patent and draining. Pt buttock dressing is CDI.
[2022-12-13] MEDS: ENOXAPARIN 60 MG/0.6 ML INJ SUBCUT (10:39)
[2022-12-13] MEDS: VANCOMYCIN 125 MG CAPSULE PO ×4 (10:40→20:27)
[2022-12-13] MEDS: LACTOBACILLUS ACIDOPHILUS 1 TABLET 2 TAB PO ×2 (10:40→17:46)
[2022-12-13] MEDS: METOPROLOL TARTRATE 25 MG TABLET PO ×2 (10:41→20:25)
[2022-12-13] MEDS: FAMOTIDINE 20 MG TABLET PO ×2 (10:41→20:26)
[2022-12-13] MEDS: ACETAMINOPHEN 325 MG TABLET 650 MG PO (10:41)
[2022-12-13] MEDS: CALCIUM CARBONATE 500 MG TABLET PO ×3 (10:41→20:26)
[2022-12-13] MEDS: predniSONE 5 MG TABLET PO (10:41)
[2022-12-13] MEDS: SODIUM BICARBONATE 650 MG TABLET 1300 MG PO ×2 (10:42→20:25)
[2022-12-13] MEDS: ONDANSETRON 2 MG/ML inj 4 MG IVP (11:19)
[2022-12-13 13:29] LABS: Ionized Calcium* 0.98 mmol/L (1.11-1.30)
[2022-12-13 13:51] LABS: Chloride* 108 mmol/L (96-114); Potassium* 3.6 mmol/L (3.6-5.1); Sodium* 133 mmol/L (135-149)
[2022-12-13 13:54] LABS: Blood Urea Nitrogen* 28 mg/dL (7-30); Calcium* 6.8 mg/dL (8.4-10.6); Carbon Dioxide* 23 mmol/L (20-32); Creatinine* 2.7 mg/dL (0.5-1.5); Est. Creatinine Clearance* 19.39; Estimated Glomerular Filt Rate 18 ml/min; Glucose* 94 mg/dL (60-115)
[2022-12-13] MEDS: OXYCODONE 5 MG TABLET 20 MG PO ×2 (14:25→22:28)
--- NOTE | 2022-12-13 15:00 | P.IMPN_ITS ---
Progress Note: A&P Assessment and plan (1) Community acquired pneumonia: Problem details: - RLL, noted on 12/08 CXR - Zosyn (started 12/08). She is now on room air and lung sounds are clear. - repeat chest x-ray 12/10 exhibits no worsening of disease Stop Zosyn tomorrow. I think that her pneumonia has been adequately treated with 5 days of Zosyn and with her history of recurrent C diff, I favor stopping antibiotics as soon as possible. Status: Acute (2) COVID-19: Problem details: - Remdesivir (12/08), not requiring supplemental oxygen as of hospital day #1, remains on RA. 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 Continue oral vanco during hospitalization. Has prn imodium available. Will need outpatient referral to GI for consideration of fecal transplant. Status: Acute (4) Encephalopathy acute: Problem details: - noted on admission: Multifactorial including from COVID-19, pneumonia and fever, adrenal insufficiency, KAMILA superimposed onto CKD - improving Status: Acute (5) Supraventricular tachycardia: Problem details: - noted in ED 12/08 (treated with Adenosine x1), resolved - on home dose of Metoprolol - [id number] Nati notes that baseline HR is 100-110 at home - TTE completed 12/11: Final Impressions: 1. Normal LV size, normal wall thickness, estimated EF of 30 - 35%. 2. Normal RV size and systolic function. 3. The aortic valve is sclerotic, no stenosis and no regurgitation. 4. The mitral valve is sclerotic, mild to moderate mitral regurgitation. 5. Normal RA pressure. Comparison Compared to prior exam of 09/11/2011: - LVEF is decreased today - 3/4 HR markedly elevated again. EKG shows sinus tachycardia. PE is a possibl e diagnosis with no good way to rule it out at this time. Patient and daughter are understanding of this and desired treatment with anticoagulation. Lovenox 60 mg subcutaneously daily started yesterday. Tachycardia has resolved. Obtain V/Q scan on Wednesday. Status: Acute (6) CKD (chronic kidney disease) stage 4, GFR 15-29 ml/min: Problem details: - with associated normocytic anemia, baseline Status: Acute (7) Decubitus ulcer of coccygeal region: Problem details: - Unstageable Recommendations from Wound Care: Focus on offloading, keeping patient from laying supine for extending periods. Reposition at minimum every 2 hours. Focus on increased protein, supplement with zinc and vitaminC Woundcare orders: --Cleanse wound with available wound cleanser (vashe currently at bedside) --Apply 3m cavilon skin barrier to periwound --Lightly pack a strip of Aquacel Ag into woundbed, including undermining (this is at the bedside) --Cover with border foam dressing (Mepilex is on unit) --Change every other day and PRN Status: Acute (8) Chronic use of opiate drug for therapeutic purpose: Problem details: - chronic pain; continue home medications Status: Acute (9) Chronic steroid use: Problem details: - 5mg of daily Prednisone for h/o vasculitis, RA, psoriasis - continue Prednisone during stay; treated with stress dose IV hydrocortisone on admission Status: Acute (10) Hypocalcemia: Problem details: - Continue to replace and follow Status: Acute Subjective Time Seen by Provider: 12:44 Date Seen: 12/13/22 Interval history: Alejandra had 4 BMs overnight, none on day shift so far. She was somewhat nauseous this morning and did not want to eat. She is still requiring quite a bit of assistance to move around and her daughter in-law S that she would not be able to care for Alejandra with her current level of assistance less that improves before discharge. I spoke with Nati over the phone today about how Alejandra is likely getting closer to discharge and we discussed treatment of pneumonia, COVID, hypocalcemia, and C diff as well as placement. Exam Narrative: Exam Narrative: General: No acute distress. Sleeping in bed, easily arousable. Oriented. No pallor. No jaundice. Oropharynx: Clear. Mucous membranes moist. Cardiovascular: Regular rate and rhythm. No murmurs, gallops, or rubs. Respiratory: Clear to auscultation bilaterally. Extremities: No pedal edema. Const: Vital Signs, click to edit/add: Vital Signs - 24 hr 12/12/22 16:33 12/12/22 16:33 12/12/22 16:36 Temperature 98.0 F Pulse Rate 83 Pulse Rate [Pulse Oximeter] 83 91 Respiratory Rate 18 18 Blood Pressure [Le ft Arm] 154/86 H Blood Pressure [Ri ght Arm] Pulse Oximetry 93 Oxygen Delivery Me thod Room Air 12/12/22 20:37 12/12/22 23:00 12/12/22 23:00 Temperature 99.0 F 99.4 F Pulse Rate Pulse Rate [Pulse Oximeter] 77 80 80 Respiratory Rate 20 20 20 Blood Pressure [Le ft Arm] 169/64 H 171/67 H Blood Pressure [Ri ght Arm] Pulse Oximetry 96 99 Oxygen Delivery Me thod Room Air Room Air 12/12/22 23:00 12/13/22 03:00 12/13/22 07:07 Temperature 97.6 F Pulse Rate 75 75 Pulse Rate [Pulse Oximeter] 80 Respiratory Rate 14 Blood Pressure [Le ft Arm] 157/69 H Blood Pressure [Ri ght Arm] Pulse Oximetry 96 Oxygen Delivery Me thod Room Air 12/13/22 10:00 Temperature 97 F L Pulse Rate Pulse Rate [Pulse Oximeter] 75 Respiratory Rate 14 Blood Pressure [Le ft Arm] Blood Pressure [Ri ght Arm] 155/76 H Pulse Oximetry 95 Oxygen Delivery Me thod Room Air Documenting provider has reviewed patient's vital signs: yes Labs Labs: Laboratory Results - last 24 hr 12/13/22 12/13/22 13:25 13:25 Sodium 133 L Potassium 3.6 Chloride 108 Carbon Dioxide 23 BUN 28 Creatinine 2.7 H Estimated Creat Clear 19.39 Estimated GFR 18 Glucose 94 Calcium 6.8 L Ionized Calcium Tom 0.98 L
--- NOTE | 2022-12-13 15:23 | ONC.NURNOTE ---
pleasant alert and oriented . chronic pain and stiffness. reassurance given. turned and repositioned every 2-3 hrs. refused to get oob. daughter in law here and very helpful and supported. vs wnl. 95 ra. ls clear. heart reg s1s2. BLE edema as previous. compression hose on. enc tcdb. decreased appetite. nibbling on pudding and cottage cheese. oxy/tylenol for pain. bs + flatus +. Nausea x1 this am. zofran with relief. IV would not flush this am . repositioned and flushed well. one med size thick liq brown stool. did not look like cdiff. pericare and mepolex replaced.
[2022-12-13] MEDS: MIRTAZAPINE 15 MG TABLET PO (20:26)
[2022-12-13] MEDS: 0.9 % SODIUM CHLORIDE 250 ml IV (21:18)
--- NOTE | 2022-12-13 22:42 | PC.NURSE ---
Shift [id number]- Patient is resistive to turning/repositioning and declines to get up to chair. She is educated about skin breakdown/ ulcer prevention, though she states her body is different and it doesn't work that like on her. She also tells RN don't even look when talking about checking to see if she needed pericares. She did have incontinent soft stool and was provided pericares and repositioned. She prefers to be on right side, and will ask to be repositioned back onto that side shortly (within an hour or less) after being placed on left side. She states left sided position causes stomach pain. Pillows are used for offloading. PRN and scheduled pain medication administered. Ice pack also applied to stomach tonight for pain. Barrier cream also applied to butt.
[2022-12-14] VITALS (8 sets, daily range): BP systolic 153–188; BP diastolic 60–87; PULSE 71–126; RESP 14–20; TEMP 36.3–36.7; O2SAT 95–99
[2022-12-14] MEDS: PIPERACILLIN/TAZOBACTAM 2.25 GM in 0.9 % SODIUM CHLORIDE Mini-bag 100 ML IVPB (02:26)
[2022-12-14] MEDS: OXYCODONE 5 MG TABLET 20 MG PO (02:27)
--- NOTE | 2022-12-14 03:35 | PC.NURSE ---
SHIFT NOTE -: Pt A&O. Turned and repositioned Q2H, incontinent of stool, annmarie care provided. Pt hypertensive, updated with no new orders received. Pt given PRN Oxycodone for pain with pt reporting relief. Oxygen saturations >90% on RA. Afebrile. Gill patent and draining.
[2022-12-14] MEDS: LEVOTHYROXINE 75 MCG TABLET PO (06:05)
--- NOTE | 2022-12-14 06:52 | PC.NURSE ---
[id number]: patient turn and repo in bed Q2H, incontinent of loose brown stool X1, Gill patent and draining. patient appears to have slept well overnight.
[2022-12-14 07:00] LABS: Basophils Absolute Auto 0.02 K/uL (0.00-0.30); Basophils Percent Auto 0.2 % (0.0-3.0); Eosinophils Absolute Auto 0.42 K/uL (0.00-0.50); Hemoglobin* 9.4 gm/dL (12.0-16.0); Immature Granulocytes Abs Auto 0.06 K/uL (0.00-0.30); Immature Granulocytes Pct Auto 0.6 %; Lymphocytes Percent Auto 8.1 % (20-44); Mean Corpuscular HGB Conc 32 gm/dL (32-36); Mean Corpuscular Hemoglobin 29 pg (26-34); Mean Corpuscular Volume 90 fL (80-100); Monocytes Percent Auto 5.7 % (0.0-11.0); Neutrophils Percent Auto 81.4 % (42.0-72.0); Platelet Count* 197 K/uL (140-440); RDW Coefficient of Variation % 14.2 % (11.5-15.5); Red Blood Count 3.21 m/uL (4.00-5.20); White Blood Count* 10.43 K/uL (4.50-11.00)
[2022-12-14 07:01] LABS: Ionized Calcium* 1.08 mmol/L (1.11-1.30)
[2022-12-14 07:04] LABS: Slide Review Reflex No
[2022-12-14 07:19] LABS: Chloride* 108 mmol/L (96-114); Potassium* 3.7 mmol/L (3.6-5.1); Sodium* 135 mmol/L (135-149)
[2022-12-14 07:21] LABS: Creatinine* 2.7 mg/dL (0.5-1.5); Est. Creatinine Clearance* 19.39; Estimated Glomerular Filt Rate 18 ml/min
[2022-12-14 07:22] LABS: Blood Urea Nitrogen* 27 mg/dL (7-30); Calcium* 7.7 mg/dL (8.4-10.6); Carbon Dioxide* 23 mmol/L (20-32); Glucose* 81 mg/dL (60-115)
[2022-12-14] MEDS: PROCHLORPERAZINE 10 MG TABLET PO ×2 (09:03→18:20)
[2022-12-14] MEDS: ENOXAPARIN 60 MG/0.6 ML INJ SUBCUT (09:08)
[2022-12-14] MEDS: VANCOMYCIN 125 MG CAPSULE PO ×4 (09:09→20:57)
[2022-12-14] MEDS: predniSONE 5 MG TABLET PO (09:09)
[2022-12-14] MEDS: METOPROLOL TARTRATE 25 MG TABLET PO ×2 (09:09→20:57)
[2022-12-14] MEDS: CALCIUM CARBONATE 500 MG TABLET PO ×4 (09:09→20:57)
[2022-12-14] MEDS: SODIUM BICARBONATE 650 MG TABLET 1300 MG PO ×2 (09:09→20:57)
[2022-12-14] MEDS: FAMOTIDINE 20 MG TABLET PO ×2 (09:10→20:57)
[2022-12-14] MEDS: LACTOBACILLUS ACIDOPHILUS 1 TABLET 2 TAB PO ×3 (09:12→16:39)
[2022-12-14] MEDS: diphenhydrAMINE 50 MG/ML inj 25 MG IVP (10:23)
[2022-12-14] MEDS: SODIUM CHLORIDE 0.9 % (FLUSH) 10 ML SYRINGE 5 ML IVF (10:24)
--- NOTE | 2022-12-14 10:37 | PC.NURSE ---
Strongly enc patient to get oob but at this time she is declining getting up. Complaining of itching all over benadryl given.
--- NOTE | 2022-12-14 15:11 | PM.IMPN1 ---
Progress Note: A&P Assessment and plan (1) Community acquired pneumonia: Problem details: - RLL, noted on 12/08 CXR - Zosyn (started 12/08). She is now on room air and lung sounds are clear. - repeat chest x-ray 12/10 exhibits no worsening of disease - WBC normalized a few days ago and has remained wnl. Zosyn likely contributing to diarrhea, is likely cause of new rash and puts her at risk for recurrent C diff. She has been treated with 5 days of antibiotics, which was likely adequate for this pneumonia, and the risk of continuing zosyn outweighs the benefit. Stop zosyn today. Status: Acute (2) COVID-19: Problem details: - Remdesivir (12/08), not requiring supplemental oxygen as of hospital day #1, remains on RA. 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 Continue oral vanco during hospitalization. Has prn imodium available. - 12/[address] Brush from [facility] who recommended stopping zosyn as soon as possible and continuing vanco at current dose with long taper vs. changing to Dificid. If patient's diarrhea is severe and not improving, she may need inpatient transfer for fecal transplant, otherwise could be seen by GI as outpatient. Status: Acute (4) Encephalopathy acute: Problem details: - noted on admission: Multifactorial including from COVID-19, pneumonia and fever, adrenal insufficiency, KAMILA superimposed onto CKD - improving Status: Acute (5) Supraventricular tachycardia: Problem details: - noted in ED 12/08 (treated with Adenosine x1), resolved - on home dose of Metoprolol - [id number] Nati notes that baseline HR is 100-110 at home - TTE completed 12/11: Final Impressions: 1. Normal LV size, normal wall thickness, estimated EF of 30 - 35%. 2. Normal RV size and systolic function. 3. The aortic valve is sclerotic, no stenosis and no regurgitation. 4. The mitral valve is sclerotic, mild to moderate mitral regurgitation. 5. Normal RA pressure. Comparison Compared to prior exam of 09/11/2011: - LVEF is decreased today - 3/4 HR markedly elevated again. EKG shows sinus tachycardia. PE is a possible diagnosis with no good way to rule it out at this time. Patient and daughter are understanding of this and desired treatment with anticoagulation. Lovenox 60 mg subcutaneously daily started 12/12/22. Tachycardia has resolved. Obtain V/Q scan on tomorrow. Status: Acute (6) CKD (chronic kidney disease) stage 4, GFR 15-29 ml/min: Problem details: - with associated normocytic anemia, baseline Status: Acute (7) Decubitus ulcer of coccygeal region: Problem details: - Unstageable Recommendations from Wound Care: Focus on offloading, keeping patient from laying supine for extending periods. Reposition at minimum every 2 hours. Focus on increased protein, supplement with zinc and vitaminC Woundcare orders: --Cleanse wound with available wound cleanser (rupalihe currently at bedside) --Apply 3m cavilon skin barrier to periwound --Lightly pack a strip of Aquacel Ag into woundbed, including undermining (this is at the bedside) --Cover with border foam dressing (Mepilex is on unit) --Change every other day and PRN Status: Acute (8) Chronic use of opiate drug for therapeutic purpose: Problem details: - chronic pain; continue home medications Status: Acute (9) Chronic steroid use: Problem details: - 5mg of daily Prednisone for h/o vasculitis, RA, psoriasis - continue Prednisone during stay; treated with stress dose IV hydrocortisone on admission Status: Acute (10) Hypocalcemia: Problem details: - Continue to replace and follow Status: Acute Subjective Time Seen by Provider: 09:58 Date Seen: 12/14/22 Interval history: Nurse noted a rash on Alejandra's trunk, arms and legs this morning. Alejandra stated this was itchy. By the time I saw her about an hour later, she no longer had the rash, but upper arms and upper inner thighs were a bit red. She continued to have pruritis. Still some diarrhea. Her daughter in law is concerned about Cdiff and the treatment of Cdiff. We discussed dishcarge planning as well. It sounds like it would be very challenging for Nati to care for Alejandra if she is weak and having diarrhea. 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 Exam Narrative: Exam Narrative: General: No acute distress. Sleeping in bed, easily arousable. Oriented. No pallor. No jaundice. Oropharynx: Clear. Mucous membranes moist. Cardiovascular: Regular rate and rhythm. No murmurs, gallops, or rubs. Respiratory: CTAB. Skin: moderate generalized erythema and edema of upper arms and inner upper thighs, no other rash at this time. Extremities: No pedal edema. Const: Vital Signs, click to edit/add: Vital Signs - 24 hr 12/13/22 15:38 12/13/22 15:47 12/13/22 19:01 Temperature 97.7 F 98.3 F Pulse Rate 77 Pulse Rate [Pulse Oximeter] 78 83 Respiratory Rate 16 16 Blood Pressure [Le ft Arm] Blood Pressure [Ri ght Arm] 146/68 H 151/66 H Pulse Oximetry 97 96 Oxygen Delivery Me thod Room Air Room Air 12/13/22 23:00 12/13/22 23:00 12/13/22 23:00 Temperature 97.5 F L Pulse Rate 82 Pulse Rate [Pulse Oximeter] 84 Respiratory Rate 20 18 Blood Pressure [Le ft Arm] 197/102 H Blood Pressure [Ri ght Arm] Pulse Oximetry 95 Oxygen Delivery Me thod Room Air 12/14/22 03:00 12/14/22 07:00 12/14/22 07:00 Temperature 97.9 F 98.0 F Pulse Rate 71 Pulse Rate [Pulse Oximeter] 84 81 Respiratory Rate 20 18 Blood Pressure [Le ft Arm] 188/87 H 178/65 H Blood Pressure [Ri ght Arm] Pulse Oximetry 97 95 Oxygen Delivery Me thod Room Air Room Air 12/14/22 07:00 12/14/22 14:56 Temperature Pulse Rate 78 Pulse Rate [Pulse Oximeter] 81 Respiratory Rate Blood Pressure [Le ft Arm] Blood Pressure [Ri ght Arm] Pulse Oximetry Oxygen Delivery Me thod Documenting provider has reviewed patient's vital signs: yes Labs Labs: Laboratory Results - last 24 hr 12/14/22 12/14/22 12/14/22 06:48 06:48 06:48 WBC 10.43 RBC 3.21 L Hgb 9.4 L Hct 29.0 L MCV 90 MCH 29 MCHC 32 RDW Coeff of Mona 14.2 Plt Count 197 Neut % (Auto) 81.4 H Lymph % (Auto) 8.1 L [place] % (Auto) 5.7 Eos % (Auto) 4.0 Baso % (Auto) 0.2 Neut # (Auto) 8.50 H Lymph # (Auto) 0.80 L [place] # (Auto) 0.60 Eos # (Auto) 0.42 Baso # (Auto) 0.02 Sodium 135 Potassium 3.7 Chloride 108 Carbon Dioxide 23 BUN 27 Creatinine 2.7 H Estimated Creat Clear 19.39 Estimated GFR 18 Glucose 81 Calcium 7.7 L Ionized Calcium Otm 1.08 L
--- NOTE | 2022-12-14 16:01 | PC.SOCIAL ---
Discharge Planning: Call received from [facility]. ([phone]) stating that they have been providing home care services to pt in her home (RN, PT, OT, STOCK FEEDER) and would be prepared to resume home care services as apprpriate at time of discharge. SW will continue to follow for d/c planning needs.
--- NOTE | 2022-12-14 17:38 | PC.NURSE ---
End of Shift Note: Have attempted a couple of times to get patient to sit up in the recliner chair but she has declined because of the wound on her bottom. Have turned and reposition her throughout the shift. OT was able to get her to stand at bedside. She has been inc of stool x2 moderate amounts. She says she can't tell when she goes. Did note this am she complained of being itchy all over and noted a rash. She did receive benadyl for the itch. Rash does look better this afternoon but her zoysn was also stopped. Will continue to monitor.
[2022-12-14] MEDS: LOPERAMIDE HCL 2 MG CAPSULE 4 MG PO (18:21)
[2022-12-14] MEDS: MIRTAZAPINE 15 MG TABLET PO (20:56)
[2022-12-15 02:15] VITALS: BP 154/61; PULSE 79; RESP 14; TEMP 36.4; O2SAT 94
--- NOTE | 2022-12-15 06:00 | CRLHL7_ITS ---
For Patients: As a result of the Century Cures Act, medical imaging exams and procedure reports are released immediately into your electronic medical record. You may view this report before your referring provider. If you have questions, please contact your health care provider. INDICATION: History of pneumonia, shortness of breath, chronic renal disease, tachycardia, assess for pulmonary emboli. TECHNIQUE: 5.0 millicuries of technetium-99m labeled MAA has been given intravenously for the perfusion scan. 1 millicurie of technetium-99m labeled DTPA has been given as an aerosol for the ventilation scan. COMPARISON: Chest x-ray dated 12/15/2022. FINDINGS: The ventilation scan demonstrates poor ventilation to the mid and lower right lung. There is central deposition of radiotracer, especially on the right. There is a diffuse mildly heterogeneous pattern of ventilation on the left. The perfusion overall is better than the ventilation. There is a matched perfusion defects identified involving the right middle lobe and right lower lobe. Small matched perfusion defect identified in the posterior left lung base noted. There are no significant ventilation perfusion mismatches. Review of the chest x-ray demonstrates patchy infiltrate lower right lung. IMPRESSION: Study is considered indeterminate for pulmonary emboli. Triple matched defect identified on the right. No ventilation perfusion mismatches are seen. The perfusion is better than the ventilation. There is significant decreased ventilation and perfusion to the right middle lobe and right lower lobe. Findings communicated with the inpatient med/surgery charge nurse at [facility] 12/15/2021 at 1000. Dictated by Duc Martin MD @ 12/15/2022 10:08:59 AM (Electronically Signed)
[2022-12-15] MEDS: LEVOTHYROXINE 75 MCG TABLET PO (06:07)
[2022-12-15] MEDS: LOPERAMIDE HCL 2 MG CAPSULE 4 MG PO (06:31)
--- NOTE | 2022-12-15 06:39 | PC.NURSE ---
: pt pleasant. T&R q2h. Mepi to coccyx CDI. VSS. Tele = NSR. Gill patent and draining. 1x loose incont BM, Imodium given. pts skin dry and flakey, lotion applied. redness to bilat arms.
[2022-12-15 07:00] VITALS: BP 123/77; PULSE 97; RESP 14; TEMP 36.6; O2SAT 93
[2022-12-15 07:09] LABS: Basophils Absolute Auto 0.02 K/uL (0.00-0.30); Basophils Percent Auto 0.2 % (0.0-3.0); Eosinophils Absolute Auto 0.44 K/uL (0.00-0.50); Eosinophils Percent Auto 4.2 % (0.0-7.0); Hematocrit 29.4 % (33.0-51.0); Hemoglobin* 9.5 gm/dL (12.0-16.0); Immature Granulocytes Abs Auto 0.08 K/uL (0.00-0.30); Immature Granulocytes Pct Auto 0.8 %; Lymphocytes Percent Auto 10.6 % (20-44); Mean Corpuscular HGB Conc 32 gm/dL (32-36); Mean Corpuscular Hemoglobin 30 pg (26-34); Mean Corpuscular Volume 92 fL (80-100); Monocytes Percent Auto 6.8 % (0.0-11.0); Neutrophils Percent Auto 77.4 % (42.0-72.0); Platelet Count* 227 K/uL (140-440); RDW Coefficient of Variation % 14.4 % (11.5-15.5); White Blood Count* 10.41 K/uL (4.50-11.00)
[2022-12-15 07:11] LABS: Ionized Calcium* 1.14 mmol/L (1.11-1.30)
[2022-12-15 07:13] LABS: Slide Review Reflex No
[2022-12-15 07:43] LABS: Chloride* 105 mmol/L (96-114); Potassium* 3.7 mmol/L (3.6-5.1); Sodium* 134 mmol/L (135-149)
[2022-12-15 07:46] LABS: Carbon Dioxide* 25 mmol/L (20-32); Creatinine* 2.9 mg/dL (0.5-1.5); Est. Creatinine Clearance* 18.06; Estimated Glomerular Filt Rate 17 ml/min
[2022-12-15 07:47] LABS: Blood Urea Nitrogen* 26 mg/dL (7-30); Calcium* 8.4 mg/dL (8.4-10.6); Glucose* 83 mg/dL (60-115)
--- NOTE | 2022-12-15 09:19 | CRLHL7_ITS ---
For Patients: As a result of the Century Cures Act, medical imaging exams and procedure reports are released immediately into your electronic medical record. You may view this report before your referring provider. If you have questions, please contact your health care provider. INDICATION: Post nuclear medicine test. TECHNIQUE: Chest 2 views. COMPARISON: Chest radiograph 12/10/2022. FINDINGS: Stable mild reticular opacities in the right lung base. Probable tiny left pleural effusion. No new focal consolidation or pneumothorax. Biapical pleural scarring. Normal heart size and pulmonary vascularity. Aortic calcification. Thoracolumbar curve. IMPRESSION: 1. Stable mild reticular opacities in the right lung base. 2. Probable tiny left pleural effusion. Dictated by Camille Seguar MD @ 12/15/2022 10:54:51 AM (Electronically Signed)
[2022-12-15] MEDS: ENOXAPARIN 60 MG/0.6 ML INJ SUBCUT (09:54)
[2022-12-15] MEDS: SODIUM BICARBONATE 650 MG TABLET 1300 MG PO ×2 (09:54→20:44)
[2022-12-15] MEDS: predniSONE 5 MG TABLET PO (09:55)
[2022-12-15] MEDS: FAMOTIDINE 20 MG TABLET PO ×2 (09:55→20:44)
[2022-12-15] MEDS: CALCIUM CARBONATE 500 MG TABLET PO ×2 (09:55→20:44)
[2022-12-15] MEDS: OXYCODONE 5 MG TABLET 20 MG PO (09:55)
[2022-12-15] MEDS: VANCOMYCIN 125 MG CAPSULE PO ×3 (09:56→20:44)
[2022-12-15] MEDS: LACTOBACILLUS ACIDOPHILUS 1 TABLET 2 TAB PO ×2 (09:56→19:03)
[2022-12-15] MEDS: METOPROLOL TARTRATE 25 MG TABLET PO ×2 (09:57→20:45)
[2022-12-15 11:00] VITALS: BP 178/95; PULSE 95; RESP 14; TEMP 36.4; O2SAT 95
--- NOTE | 2022-12-15 12:26 | PM.WSPN ---
Progress Note: A&P Assessment and plan (1) Decubitus ulcer of coccygeal region: Status: Acute Plan Focus on offloading, keeping patient from laying supine for extending periods. Reposition at minimum every 2 hours. 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 Nursing continues to keep patient well repositioned. Wound stable, no concern for acute infection to wound. Undermining increased to 2-11 o'clock. More slough to woundbed. Daughter in-law whom is patient cement truck loader at home was present during evaluation. Questions answered to the best of my ability. Exam Narrative: Exam Narrative: General: NAD, resting in bed, appears comfortable. Pulmonary: unlabored, symmetrical rise Coccyx wound:? Unable to visualize full base of wound due to undermining. 100% slough/biofilm. Drainage serosanguineous-moderate amount. Perla-wound WNL. Measurements- [id number], undermining 2 cm, 2-11 o'clock. Psych: normal affect Const: Vital Signs, click to edit/add: Vital Signs - 24 hr 12/14/22 14:56 12/14/22 15:00 12/14/22 15:00 Temperature 97.3 F L Pulse Rate 78 Pulse Rate [Pulse Oximeter] 81 126 H Respiratory Rate 18 20 Blood Pressure [Le ft Arm] 175/81 H Blood Pressure [Ri ght Arm] Pulse Oximetry 99 Oxygen Delivery Me thod Room Air 12/14/22 19:00 12/14/22 22:31 12/14/22 22:34 Temperature 97.8 F 97.4 F L Pulse Rate 80 Pulse Rate [Pulse Oximeter] 94 80 Respiratory Rate 14 14 Blood Pressure [Le ft Arm] 153/60 H Blood Pressure [Ri ght Arm] 163/75 H Pulse Oximetry 97 96 Oxygen Delivery Me thod Room Air Room Air 12/14/22 23:00 12/15/22 02:15 12/15/22 07:00 Temperature 97.5 F L Pulse Rate Pulse Rate [Pulse Oximeter] 80 79 97 Respiratory Rate 14 14 14 Blood Pressure [Le ft Arm] 154/61 H Blood Pressure [Ri ght Arm] Pulse Oximetry 94 Oxygen Delivery Me thod Room Air 12/15/22 07:00 Temperature 97.8 F Pulse Rate Pulse Rate [Pulse Oximeter] 97 Respiratory Rate 14 Blood Pressure [Le ft Arm] 123/77 Blood Pressure [Ri ght Arm] Pulse Oximetry 93 Oxygen Delivery Me thod Room Air Documenting provider has reviewed patient's vital signs: yes Labs Labs: Laboratory Results - last 24 hr 12/15/22 12/15/22 12/15/22 06:57 06:57 06:57 WBC 10.41 RBC 3.20 L Hgb 9.5 L Hct 29.4 L MCV 92 MCH 30 MCHC 32 RDW Coeff of Mnoa 14.4 Plt Count 227 Neut % (Auto) 77.4 H Lymph % (Auto) 10.6 L [place] % (Auto) 6.8 Eos % (Auto) 4.2 Baso % (Auto) 0.2 Neut # (Auto) 8.10 H Lymph # (Auto) 1.10 [place] # (Auto) 0.70 Eos # (Auto) 0.44 Baso # (Auto) 0.02 Sodium 134 L Potassium 3.7 Chloride 105 Carbon Dioxide 25 BUN 26 Creatinine 2.9 H Estimated Creat Clear 18.06 Estimated GFR 17 Glucose 83 Calcium 8.4 Ionized Calcium Tom 1.14
[2022-12-15 15:00] VITALS: BP 130/69; PULSE 93; RESP 14; TEMP 36.4; O2SAT 93
--- NOTE | 2022-12-15 16:32 | PM.IMPN1 ---
Progress Note: A&P Assessment and plan (1) Community acquired pneumonia: Problem details: - RLL, noted on 12/08 CXR - Zosyn (started 12/08). She is now on room air and lung sounds are clear. - repeat chest x-ray 12/10 exhibits no worsening of disease - WBC normalized a few days ago and has remained wnl. Zosyn likely contributing to diarrhea, is likely cause of new rash and puts her at risk for recurrent C diff. She has been treated with 5 days of antibiotics, which was likely adequate for this pneumonia, and the risk of continuing zosyn outweighs the benefit. So since stopped in the a.m. of 12/14/2022. - fever has not returned, she is not tachycardic, she looks even better today than yesterday. Status: Acute (2) COVID-19: Problem details: - Remdesivir (12/08), not requiring supplemental oxygen as of hospital day #1, remains on RA. - weakness as primary symptom; therapies ordered and following. - at this point, it appears that she is almost better enough to return home, but needs a safe discharge plan. It is not clear if Nati can meet her needs at home. Nati will come tomorrow and see Alejandra complete therapy to determine if she is able to me needs at home. 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 Continue oral vanco during hospitalization. Has prn imodium available. - 12/[address] Brush from [facility] who recommended stopping zosyn as soon as possible and continuing vanco at current dose with long taper vs. changing to Dificid. We do not have Dificid on formulary here. Continue to treat with oral vancomycin. Zosyn has been discontinued. If patient's diarrhea is severe and not improving, she may need inpatient transfer for fecal transplant, otherwise could be seen by GI as outpatient. - Nati stated that if Alejandra get a prescription for vancomycin as an outpatient, they get it from a different pharmacy than her usual medications, because of the cost difference Status: Acute (4) Encephalopathy acute: Problem details: - noted on admission: Multifactorial including from COVID-19, pneumonia and fever, adrenal insufficiency, KAMILA superimposed onto CKD - resolved Status: Acute (5) Supraventricular tachycardia: Problem details: - noted in ED 12/08 (treated with Adenosine x1), resolved - on home dose of Metoprolol - [id number] Nati notes that baseline HR is 100-110 at home - TTE completed 12/11: Final Impressions: 1. Normal LV size, normal wall thickness, estimated EF of 30 - 35%. 2. Normal RV size and systolic function. 3. The aortic valve is sclerotic, no stenosis and no regurgitation. 4. The mitral valve is sclerotic, mild to moderate mitral regurgitation. 5. Normal RA pressure. Comparison Compared to prior exam of 09/11/2011: - LVEF is decreased today - 3/4 HR markedly elevated again. EKG shows sinus tachycardia. PE is a possible diagnosis with no good way to rule it out at this time. Patient and daughter are understanding of this and desired treatment with anticoagulation. Lovenox 60 mg subcutaneously daily started 12/12/22. - 12/15/22 Tachycardia has resolved. V/Q scan indeterminate. Continue Lovenox. I spoke with Nati today about oral options for treatment of presumed PE. Creatinine clearance is 18 and so we could use renally dosed Xarelto or Eliquis. Nati is going to compare costs and get back to us. Status: Acute (6) CKD (chronic kidney disease) stage 4, GFR 15-29 ml/min: Problem details: - with associated normocytic anemia, baseline Status: Acute (7) Decubitus ulcer of coccygeal region: Problem details: - Unstageable Recommendations from Wound Care: Focus on offloading, keeping patient from laying supine for extending periods. Reposition at minimum every 2 hours. Focus on increased protein, supplement with zinc and vitaminC Seen again by wound care 12/15/2022. I appreciate their recommendations. Woundcare orders: --Cleanse wound with available wound cleanser (vashe currently at bedside) --Apply 3m cavilon skin barrier to periwound --Lightly pack a strip of Aquacel Ag into woundbed, including undermining (this is at the bedside) --Cover with border foam dressing (Mepilex is on unit) --Change every other day and PRN Status: Acute (8) Chronic use of opiate drug for therapeutic purpose: Problem details: - chronic pain; continue home medications Status: Acute (9) Chronic steroid use: Problem details: - 5mg of daily Prednisone for h/o vasculitis, RA, psoriasis - continue Prednisone during stay; treated with stress dose IV hydrocortisone on admission Status: Acute (10) Hypocalcemia: Problem details: This has resolved. I have adjusted oral calcium accordingly. Status: Resolved Subjective Time Seen by Provider: 11:10 Date Seen: 12/15/22 Interval history: Alejandra is doing better today. She is more awake. Alejandra told me she does not want to go to a penitentiary. She says that she can transfer independently. I spoke with her nurse about it. After our conversation, Alejandra and her nurse attempted a transfer from the chair back into bed which Alejandra was able to do with minimal assist. I spoke with Alejandra's daughter in-law, kinsey, over the phone this afternoon. We discussed that Alejandra is overall improving, her electrolytes have improved, her hemoglobin is stable. Her weakness is improving and she was able to transfer with 1 assist today. Next all expressed concern about diarrhea. I noted that according to the chart she had had 2 bowel movements in the last 36 hours. We discussed how Zosyn was discontinued yesterday morning and that the diarrhea will likely improve further as she gets farther out from having been on Zosyn. Her tachycardia and fever have resolved and with the exception of 1 vitals check where she had heart rate above 100, she has not had any other tachycardia or fever for the last 2-3 days. I noted that Alejandra is medically ready for discharge, but we need to have a safe discharge plan for her. Nati is hesitant to take her back home because of the diarrhea and mobility issues. I asked Nati to come in tomorrow and watch Alejandra ambulate with therapy and to have a candid conversation with Alejandra about her needs and whether not she wants to be in a penitentiary. We also discussed the results of the V/Q scan and medications including warfarin, Eliquis, Xarelto, Lovenox, vancomycin. I asked Nati to look into what these might cost for Alejandra so that they can make a decision about what they would like her to be on for treatment of presumed PE. Exam Narrative: Exam Narrative: General: No acute distress. Awake, alert, oriented x3, sitting in the chair. Appears to be perkier today. No pallor. No jaundice. Oropharynx: Clear. Mucous membranes moist. Cardiovascular: Regular rate and rhythm. No murmurs, gallops, or rubs. Respiratory: CTAB. Diminished in the bases. Skin: No rash. Const: Vital Signs, click to edit/add: Vital Signs - 24 hr 12/14/22 19:00 12/14/22 22:31 12/14/22 22:34 Temperature 97.8 F 97.4 F L Pulse Rate 80 Pulse Rate [Pulse Oximeter] 94 80 Respiratory Rate 14 14 Blood Pressure [Le ft Arm] 153/60 H Blood Pressure [Ri ght Arm] 163/75 H Pulse Oximetry 97 96 Oxygen Delivery Me thod Room Air Room Air 12/14/22 23:00 12/15/22 02:15 12/15/22 07:00 Temperature 97.5 F L Pulse Rate Pulse Rate [Pulse Oximeter] 80 79 97 Respiratory Rate 14 14 14 Blood Pressure [Le ft Arm] 154/61 H Blood Pressure [Ri ght Arm] Pulse Oximetry 94 Oxygen Delivery Me thod Room Air 12/15/22 07:00 12/15/22 11:00 Temperature 97.8 F 97.6 F Pulse Rate Pulse Rate [Pulse Oximeter] 97 95 Respiratory Rate 14 14 Blood Pressure [Le ft Arm] 123/77 Blood Pressure [Ri ght Arm] 178/95 H Pulse Oximetry 93 95 Oxygen Delivery Me thod Room Air Room Air Documenting provider has reviewed patient's vital signs: yes Labs Labs: Laboratory Results - last 24 hr 12/15/22 12/15/22 12/15/22 06:57 06:57 06:57 WBC 10.41 RBC 3.20 L Hgb 9.5 L Hct 29.4 L MCV 92 MCH 30 MCHC 32 RDW Coeff of Mona 14.4 Plt Count 227 Neut % (Auto) 77.4 H Lymph % (Auto) 10.6 L [place] % (Auto) 6.8 Eos % (Auto) 4.2 Baso % (Auto) 0.2 Neut # (Auto) 8.10 H Lymph # (Auto) 1.10 [place] # (Auto) 0.70 Eos # (Auto) 0.44 Baso # (Auto) 0.02 Sodium 134 L Potassium 3.7 Chloride 105 Carbon Dioxide 25 BUN 26 Creatinine 2.9 H Estimated Creat Clear 18.06 Estimated GFR 17 Glucose 83 Calcium 8.4 Ionized Calcium Tom 1.14
--- NOTE | 2022-12-15 19:40 | PC.NURSE ---
Pt. ambulating from bed to chair with 1 assist. tolerated activity. Pt. refused to go back to chair for dinner and stated she was not hungry. Life Science Taxonomist tried to repo Q2hrs. but pt. refused a few times. Pt. VSS. afebrile and tolerating a reg diet. Pt. did not have any diarrhea today. Pt. slept most of PM shift. Pt. eager to return home and states she does not want to stay much longer.
[2022-12-15 20:43] VITALS: BP 138/70; PULSE 85; RESP 16; TEMP 36.6; O2SAT 96
[2022-12-15] MEDS: MIRTAZAPINE 15 MG TABLET PO (20:44)
[2022-12-15 23:00] VITALS: BP 163/68; PULSE 80; RESP 16; TEMP 36.6; O2SAT 95
[2022-12-16] MEDS: LOPERAMIDE HCL 2 MG CAPSULE 4 MG PO (00:22)
[2022-12-16 03:00] VITALS: BP 159/67; PULSE 83; RESP 16; TEMP 36.6; O2SAT 95
--- NOTE | 2022-12-16 05:06 | PC.NURSE ---
Shift note: Pt has been in bed throughout the shift. Refused turning and reposition and denied any pain or discomfort. Pt requested for Loperamide for diarrhea. Dressing to the back dry. Vitally stable.
[2022-12-16 07:35] VITALS: BP 187/75; PULSE 99; RESP 16; TEMP 36.7; O2SAT 100
[2022-12-16] MEDS: LEVOTHYROXINE 75 MCG TABLET PO (08:11)
[2022-12-16] MEDS: LACTOBACILLUS ACIDOPHILUS 1 TABLET 2 TAB PO (08:11)
[2022-12-16] MEDS: SODIUM BICARBONATE 650 MG TABLET 1300 MG PO (08:52)
[2022-12-16] MEDS: ENOXAPARIN 60 MG/0.6 ML INJ SUBCUT (08:52)
[2022-12-16] MEDS: FAMOTIDINE 20 MG TABLET PO (08:53)
[2022-12-16] MEDS: METOPROLOL TARTRATE 25 MG TABLET PO (08:53)
[2022-12-16] MEDS: predniSONE 5 MG TABLET PO (08:53)
[2022-12-16] MEDS: CALCIUM CARBONATE 500 MG TABLET PO (08:54)
[2022-12-16] MEDS: VANCOMYCIN 125 MG CAPSULE PO (08:54)
[2022-12-16 10:20] VITALS: BP 141/83; PULSE 80; RESP 16; TEMP 36.7
[2022-12-16 11:00] VITALS: PULSE 94; RESP 16; TEMP 36.7
--- NOTE | 2022-12-16 11:59 | PC.NURSE ---
Pt alert and oriented, pleasant and conversational. Elevated BP this AM d/t pt c/o itchy skin to back and continuously moving, typewriter repairer applied lotion a couple times to pt's back and pt stated it greatly improved then pt eating breakfast and getting dressed for d/c, received scheduled BP med per orders, pt asymptomatic. Pt tolerated diet, denies dizziness, denies nausea. Last BM yesterday, Cooper patent and draining straw colored urine (300ml out this AM). Order placed initially to remove cooper cath for discharge but further clarified with MD after pt refused removal, pt and pt's caregiver ([id number] 'Nati') stated cooper is actually chronic and they have home care set up for nurse to replace q30 days, typewriter repairer updated provider who stated ok for cath to remain in place. 'Nati' came to orange picker pt w/ pt's personal wheelchair, pt dressed and transferred via stand and pivot into without issues. IV catheter removed intact without issue. Discharge instructions reviewed with pt and daughter, also educated on the 2 prescriptions sent to [facility] and 1 physical script. Some opened/remaining wound care supplies sent with pt. Pt denied further questions and d/c'd home.
--- NOTE | 2022-12-16 15:50 | PC.SOCIAL ---
Received a phone call from Rosalina at [employer]. requesting a new face to face to resume services. Also requesting H&P and medication list. Completed and faxed a face to face for home health care orders, discharge summary which includes medication list, and H&P to [phone]. Social work will follow up as necessary.
--- NOTE | 2022-12-16 16:29 | PM.DS1 ---
DS: Providers Provider Date Seen: 12/16/22 Date of admission: 12/08/22 19:26 Primary care physician: Not a Local Provider Admitting Clinician: Manoj Rivera MD Consults: 12/08/22 19:33 Consult to Nutrition [CONS] Routine Comment: Reason for consult:: Miscellaneous Comment: KAMILA/CKD-5; h/o recurrent C. Diff. diarrhea Consult to Physical Therapy [CONS] Routine Comment: Reason(s) for PT Consult:: Evaluate and Treat Any Restrictions?:: See Comment Comment: optimize home safety and independence 12/08/22 19:37 Consult to Occupational Therapy [CONS] Routine Comment: Reason(s) for OT Consult:: Evaluate and Treat Any Restrictions?:: No Restrictions Comment: optimize home safety and independence 12/08/22 19:38 Consult to Inflated Pad Buffer [CONS] Routine Comment: Reason for Consult:: Discharge Planning Needs 12/09/22 09:56 Consult to Wound Care [CONS] Routine Comment: inge aware of patient, will see 12/10 Consulting Provider: Inge Boykin Attending Physician on discharge: [facility]: 12/16/22 DS: Diagnosis Discharge Diagnosis (1) Acute hypoxemic respiratory failure: Status: Acute Problem details: - There was concern of PE, secondary to work of breathing, tachycardia and tachypnea. given her kidney function a contrast CT was not performed. V/Q scan was intermediate. She was maintained treatment dose subQ Lovenox. At discharge we prescribed Eliquis for her to continue until she sees her primary care doctor. Recommended duration of dosing would be 3 months. (2) COVID-19: Status: Acute Problem details: - Remdesivir x 3 doses, not requiring supplemental oxygen as of hospital day #1, discharged on RA - weakness as primary symptom (3) Clostridioides difficile infection: Status: Acute Problem details: - Recurrent; treated with oral vancomycin 3 x since July 2022, last completed a 2-week course 11/24/2022 - empirically initiated oral Vancomycin on 12/08 given CAP, significant leukocytosis on admission, antibiotic administration, risk factors - diarrhea noted 12/11, prn Imodium available - GI was consulted by phone and recommended a long taper of oral vancomycin and this was [facility] and outlined in her discharge summary. Dosing would continue up in through 02/08/2023. (4) Impaired mobility: Status: Acute Problem details: Nati, daughter, providing care. Home health resumed. (5) Unstageable pressure ulcer of sacral region: Status: Acute Problem details: Continue cares with outpatient wound care. (6) Chronic use of opiate drug for therapeutic purpose: Status: Acute Problem details: continue home regimen (7) Decubitus ulcer of coccygeal region: Status: Acute Problem details: - Unstageable Recommendations from Wound Care: Focus on offloading, keeping patient from laying supine for extending periods. Reposition at minimum every 2 hours. Focus on increased protein, supplement with zinc and vitaminC Seen again by wound care 12/15/2022. I appreciate their recommendations. Woundcare orders: --Cleanse wound with available wound cleanser (vashe currently at bedside) --Apply 3m cavilon skin barrier to periwound --Lightly pack a strip of Aquacel Ag into woundbed, including undermining (this is at the bedside) --Cover with border foam dressing (Mepilex is on unit) --Change every other day and PRN Home health to resume with [facility] wound care. (8) Supraventricular tachycardia: Status: Acute Problem details: - noted in ED 12/08 (treated with Adenosine x1), resolved - on home dose of Metoprolol - [id number] Nati notes that baseline HR is 100-110 at home - TTE completed 12/11: Final Impressions: 1. Normal LV size, normal wall thickness, estimated EF of 30 - 35%. 2. Normal RV size and systolic function. 3. The aortic valve is sclerotic, no stenosis and no regurgitation. 4. The mitral valve is sclerotic, mild to moderate mitral regurgitation. 5. Normal RA pressure. Comparison Compared to prior exam of 09/11/2011: - LVEF is decreased today - 3/4 HR markedly elevated again. EKG shows sinus tachycardia. PE is a possible diagnosis with no good way to rule it out at this time. Patient and daughter are understanding of this and desired treatment with anticoagulation. Lovenox 60 mg subcutaneously daily started 12/12/22. - 12/15/22 Tachycardia has resolved. V/Q scan indeterminate. Continue Lovenox. I spoke with Nati today about oral options for treatment of presumed PE. Creatinine clearance is 18 and so we could use renally dosed Xarelto or Eliquis. Nati is going to compare costs and get back to us. (9) CKD (chronic kidney disease) stage 4, GFR 15-29 ml/min: Status: Acute Problem details: - with associated normocytic anemia, baseline DS: Summary Hospital Course Hospital Course: HOSPITALIST DISCHARGE SUMMARY ATTENDING PHYSICIAN: Parisa Rodriguez MD FINAL DIAGNOSIS: COVID 19 weakness Acute hypoxic respiratory failure likely related to community-acquired pneumonia and PE Chronic C diff UTI Indwelling Gill catheter HOSPITAL FOLLOWUP ISSUES: 1. Anticoagulation. We could not prove that there was a PE. But given her hypoxia, tachycardia and recent COVID infections we felt this was likely. Discharged on oral Eliquis and this can be continued for 3 months. 2. Chronic C difficile colitis. Long taper of oral vancomycin prescribed. This would take her through the 08 of February. She should see [facility] as an outpatient. 3. Patient actually refused to take out her indwelling Gill catheter. We allowed her to be dismissed with this. PCP to follow up, risks of longstanding indwelling catheters discussed with both daughter and patient. REFERRALS WHILE ADMITTED: PT and OT REFERRALS AFTER DISCHARGE: [facility] BRIEF HOSPITAL COURSE: Alejandra came and weak and hypoxic. She was diagnosed with a community-acquired pneumonia and COVID-19. This is her 2nd time being diagnosed with COVID in the last 4 months. Patient was hypoxic for the 1st 24 hours but remained weak and unable to discharge primarily secondary to the weakness. She had a acute intermittent diarrhea. Was felt to be related to her history of chronic C diff. She was started on oral vancomycin. She was weaned to room air. There was a concern from the very beginning that she possibly had a PE. Given her chronic kidney disease we were unable to get a contrast chest PE study. V/Q scan was intermediate. She was maintained while here on therapeutic Lovenox and this was transition to oral Eliquis at discharge. She receives home health care and lives with her daughter. Her daughter was agreeable to our discharge plan on 12/16/2022. SUBSTANTIVE NOTATIONS ON IMAGING, LAB, MICROBIOLOGY/PATHOLOGY STUDIES: Vital signs are stable at discharge. CBC reflects a down trending and normalized CBC. Chronic anemia noted. Her white blood cell count was 28.53 on admission. This was thought to be related to her chronic C difficile colitis that was acutely exacerbated and community-acquired pneumonia. Her creatinine was 2.9 on discharge. 3.7 on admission. PE study, V/Q scan Study is considered indeterminate for pulmonary emboli. Triple matched defect identified on the right. No ventilation perfusion mismatches are seen. The perfusion is better than the ventilation. There is significant decreased ventilation and perfusion to the right middle lobe and right lower lobe. Findings communicated with the inpatient med/surgery charge nurse at [facility] 12/15/2021 at 1000. Urine culture grew Proteus. Cultures negative. She had been treated with IV Zosyn for community-acquired pneumonia which would clearly cover the Proteus. Echo EF 30-35%. Moderate MR. Reduced left ventricular function when compared to 30/08. DISCHARGE MEDICATIONS: See Reconciled list - SIGNIFICANT CHANGES: Eliquis for presumed PE. Renally dosed at 2.5 mg p.o. b.i.d.. Continue for 3 months. Oral vancomycin. Tapering regimen and over the next 7 weeks. REVIEW OF SYSTEMS No new chest pain or dyspnea Pain controlled No voiding difficulties Tolerating diet challenge PHYSICAL EXAM: CONSTITUTIONAL: Alert and oriented. VITAL SIGNS: see record. HEENT: Normocephalic, atraumatic. PERRL, EOMI, conjunctivae pink, no scleral icterus. Ears and nose externally normal. Pharynx normal. NECK: No JVD. No carotid bruit, no thyromegaly, no adenopathy. CHEST: Clear to auscultation bilaterally. HEART: S1 and S2 normal. Edema ABDOMEN: Soft, nontender. Normal bowel sounds. MUSCULOSKELETAL: No gross joint deformity or swelling. NEURO: Cranial nerves intact. Grossly intact. No asymmetric findings. SKIN: No rashes, petechiae, concerning changes PSYCHIATRIC: Mood euthymic. DISPOSITION: Home with daughter. Home health restarted. Time spent on discharge 37 minutes. Status at Discharge Functional status at discharge: uses cane/walker Overall status at discharge: patient is not back to baseline Time Spent with Patient Time attestation: Total time spent providing and/or coordinating discharge services: Time spent: Greater than 30 minutes Exam Const: Vital Signs, click to edit/add: Vital Signs - 24 hr 12/15/22 20:43 12/15/22 23:00 12/16/22 03:00 Temperature 98 F 98 F 97.9 F Pulse Rate Pulse Rate [Pulse Oximeter] 85 80 83 Respiratory Rate 16 16 16 Blood Pressure Blood Pressure [Le ft Arm] Blood Pressure [Ri ght Arm] 138/70 163/68 H 159/67 H Pulse Oximetry 96 95 95 Oxygen Delivery Me thod Room Air Room Air Room Air 12/16/22 07:35 12/16/22 10:20 12/16/22 11:00 Temperature 98.1 F 98.1 F 98.0 F Pulse Rate 80 94 Pulse Rate [Pulse Oximeter] 99 Respiratory Rate 16 16 16 Blood Pressure 141/83 H Blood Pressure [Le ft Arm] 187/75 H Blood Pressure [Ri ght Arm] Pulse Oximetry 100 Oxygen Delivery Me thod Room Air Discharge Plan Discharge Disposition: Home w/ Parent or Adult Date of Admission: 12/08/22 19:26 Attending Provider on Discharge: Parisa Rodriguez Consulting Providers: Inge Boykin Primary Care Provider: Provider,Not a Local Condition: Improved Anticipated Discharge Date/Time: 12/16/22 09:03 Discharge Medications: New vancomycin 125 mg Capsule 125 mg PO QID Qty: 80 0RF Rx Instructions: Take one capsule 4x a day thru 12/22/22 Take one capsule twice daily thru 12/29/22 Take one capsule daily thru 01/05 take one capsule every two days thru 02/08/23 Lactobacillus acidophilus 0.5 mg (100 million cell) Tablet 2 tab PO TIDWM Qty: 90 0RF Eliquis 2.5 mg tablet 2.5 mg PO BID Qty: 60 0RF Rx Instructions: You may need a refill of this medication and your PCP can guide this discussion/decision. Usual treatment for pulmonary embolus (blood clot in the lung) is at least three months. Continued sodium bicarbonate 650 mg tablet 1,300 mg PO BID Qty: 360 1RF prednisone 5 mg tablet 5 mg PO DAILY PRN levothyroxine [Levo-T] 75 mcg tablet 75 mcg PO DAILY mirtazapine 15 mg tablet 15 mg PO DAILY omeprazole magnesium [Prilosec OTC] 20 mg tablet,delayed release (DR/EC) 20 mg PO DAILY Vitron-C 65 mg iron- 125 mg tablet,delayed release (DR/EC) 1 tab PO DAILY metoprolol tartrate 25 mg tablet 25 mg PO BID oxycodone 20 mg tablet 20 mg PO Q4H PRN (Reason: pain) Qty: 120 0RF morphine 15 mg tablet extended release 15 mg PO Q12H Qty: 60 0RF Discharge Orders: Discharge Order (Routine); Ordered 12/16/22 Ordered By: Parisa Rodriguez Patient Education: Vancomycin (By mouth), Probiotic (By mouth) (Acidophilus Probiotic Blend, Culturelle,..., Apixaban (By mouth) (Eliquis), C. Diff (Clostridioides Difficile) Infection (DC), COVID-19 (Coronavirus Disease 2019) (DC) Additional Instructions: Recurrent CDIFF DIARRHEA -you being sent home on a long taper of oral Vancomycin. It goes thru February 08. Please make an appointment with [facility] ([facility]) for evaluation of this and possible fecal transplant. It is ok to take imodium twice a day to control loose stools. Presumed Pulmonary Embolus (blood clot in the lung) -We were not able to do the preferred test for this because of your kidneys. The backup test (a VQ scan) showed possible blood clot. You have been on blood thinner shots here (lovenox) and will be sent home on Eliquis (blood thinner pill). You may need a refill of this medication and your PCP can guide this discussion/decision. Usual treatment for pulmonary embolus (blood clot in the lung) is at least three months. Activity Level: Activity as Tolerated Discharge Diet: Regular and Heart Healthy (2 gm sodium, low fat) Follow Up Appointments: [facility] [Provider Group] - 01/01/23 1:15 pm ([facility] Dr. Dailey in [address] please check in at 12:55 ) Provider,Not a Local [Primary Care Provider] - 12/30/22 (Schedule an appointment 2-3 weeks with Primary care provider. ) Inge Boykin CNP [Nurse Practitioner] - 12/30/22 (wound care - wound care clinic will call you with an appointment. ) Forms: [employer] Info Instructions
== END 2022-12-16 11:00 | disposition home health service (06) | DRG 177 ==
LOC: ED 18:14 → MEDSURG 19:05
PROVIDERS: Family Medicine; Admitting Provider Internal Medicine; Emergency Provider Emergency Medicine Emergency Medical Services; Visit Provider Internal Medicine
DX: U07.1 COVID-19 (principal); I26.99 Other pulmonary embolism without acute cor pulmonale; J15.9 Unspecified bacterial pneumonia; J18.9 Pneumonia, unspecified organism; J96.01 Acute respiratory failure with hypoxia; A04.71 Enterocolitis due to Clostridium difficile, recurrent; G93.49 Other encephalopathy; N17.9 Acute kidney failure, unspecified; N18.4 Chronic kidney disease, stage 4 (severe); I47.1 Supraventricular tachycardia; E27.40 Unspecified adrenocortical insufficiency; N39.0 Urinary tract infection, site not specified; L89.150 Pressure ulcer of sacral region, unstageable; E83.51 Hypocalcemia; D63.1 Anemia in chronic kidney disease; I87.2 Venous insufficiency (chronic) (peripheral); I73.9 Peripheral vascular disease, unspecified; Z68.21 Body mass index [BMI] 21.0-21.9, adult; G89.4 Chronic pain syndrome; K21.9 Gastro-esophageal reflux disease without esophagitis; Z79.891 Long term (current) use of opiate analgesic; Z79.52 Long term (current) use of systemic steroids; F32.9 Major depressive disorder, single episode, unspecified; R54 Age-related physical debility; E03.9 Hypothyroidism, unspecified; Z74.09 Other reduced mobility; Z85.820 Personal history of malignant melanoma of skin; B96.4 Proteus (mirabilis) (morganii) as the cause of diseases classified elsewhere; Z96.0 Presence of urogenital implants
CPT/HCPCS: 36415; 71045; 71046; 78582; 80048; 81001; 82330; 83605; 83735; 84443; 84484; 85025; 87040; 87086; 87186; 87502; 87634; 87635; 93005; 93306; 94664; 94761; 97110; 97162; 97163; 97166; 97530; 97535; 99285; 99291; A9270; A9540; A9567; J0153; J0610; J1200; J1650; J1720; J2060; J2405; J2543; J7030; J7050; J7120; J7512